=== PATIENT | female | born 1945 | race African-American/Black ===

== ENCOUNTER 2016-11-01 12:39 | Inpatient (IN) ==
[2016-11-01] MEDS ORDERED: ALBUTEROL/IPRATROPIUM 3 ML NEB RESP TX STA (13:06)
--- NOTE | 2016-11-01 13:22 | Emergency Department Note ---
Judi Bales Brittany, am scribing for, and in the presence of, Magy Scott DO 13: 11. ITyler Debra, DO, personally performed the services described in this documentation, ascribed by Silvia Lau in my presence, and it is both accurate and complete 321 . Arrival - Arrival Chief Complaint: Shortness of Breath Stated Complaint: SOB ED Nursing Triage Note: C/o shortness of breath, fever, and wheezing-onset two days ago. Mode of Arrival: Wheelchair Limitations: No Limitations Source: Patient, Family - History of Present Illness HPI Narrative: This is a 71 y/o who presents to the ED with c/o dyspnea which started 1 week ago, but has gotten progressively worse in the past 3 days. Her family states she has breast cancer which has metastasized to the lungs. Her family states her oncologist is Dr. Leone. Her family reports her last radiation Tx was 4 days ago. Pt denies any CP. Pt also complains of BLE edema. Pt has no other complaints/pain in the ED at this time. PT has a PMHx HTN, IDDM , and breast cancer with mets to the lungs. Pt has had a tumor removed to the head in Jul. Pt denies a family medical Hx. Pt denies a social Hx. Onset (ago): week(s) (Started 1 week ago) Consistency: constant Severity: moderate Date of Last Menstrual Period: menopause Allergies/Adverse Reactions: Allergies Allergy/AdvReac Type Severity Reaction Status Date / Time No Known Allergies Allergy Verified 11/01/16 12:46 Home Medications: Home Medications Medication Instructions Recorded Confirmed Type Benazepril [Lotensin] 40 mg PO DAILY 11/01/16 History Ferrous Sulfate 324 mg PO BID 11/01/16 History Simvastatin [Zocor] 20 mg PO BEDTIME 11/01/16 History amLODIPine [Norvasc] 10 mg PO DAILY 11/01/16 History cloNIDine HCl [Clonidine HCl] 0.2 mg PO TID 11/01/16 History levETIRAcetam [Levetiracetam] 750 mg PO BID 11/01/16 History metFORMIN [Glucophage] 1,000 mg PO BID W/MEALS 11/01/16 History Review of System - Review of System 12 point system: reviewed and no additional remarkable complaints except as stated - Review of System Cardiovascular: Present: dyspnea on exertion. Absent: chest pain Musculoskeletal: Present: other (BLE edema) Medical,Surgical,& Family Hx - Medical History Cardio: History of: Hypertension Endocrine: History of: Diabetes Mellitus (IDDM) Reproductive: History of: Breast Cancer - Surgical History Additional Surgical History: Tumor removed to the head in Jul 2016 - Social History Smoking Status: Never smoker Frequency of Alcohol Use: None Type of Drug Use: None Exam Vital Signs: Vital Signs Temperature 97.5 F L 11/01/16 12:43 Pulse Rate 95 H 11/01/16 13:34 Respiratory Rate 19 11/01/16 13:34 Blood Pressure 168/90 11/01/16 12:43 O2 Sat by Pulse Oximetry 99 11/01/16 13:34 - General General appearance: alert, in no apparent distress - Head Head exam: Present: other (Scar consient with prior tumor removed in Jul 2016) - Eye Eye exam: Present: normal appearance, PERRL, EOMI. Absent: nystagmus, miosis, mydriasis - ENT ENT exam: Present: normal exam, normal oropharynx, mucous membranes moist, TM's normal bilaterally, normal external ear exam - Neck Neck exam: Present: normal inspection, full ROM, trachea midline. Absent: tenderness, meningismus, lymphadenopathy, thyromegaly - Chest Chest inspection: Present: normal inspection, symmetric chest wall rise. Absent : tenderness, rash, abscess - Respiratory Respiratory exam: Present: accessory muscle use, wheezes (Diffuse wheezing) - Cardiovascular Cardiovascular exam: Present: regular rate, tachycardia, normal heart sounds. Absent: murmur, rubs, gallop, clicks, JVD - Abdominal Exam Abdominal exam: Present: soft, normal bowel sounds. Absent: distention, tenderness, guarding, rebound, rigidity - Rectal Exam Rectal exam: Present: deferred - Extremities Exam Extremities exam: Present: normal capillary refill, pedal edema (BLE Edema the right is greater than the left) - Back Exam Back exam: Present: normal inspection, full ROM. Absent: tenderness, muscle spasm, rashes - Neurological Exam Neurological exam: Present: alert, oriented X3, CN II-XII intact. Absent: motor sensory deficit - Psychiatric Psychiatric exam: Present: normal affect, normal mood. Absent: depressed, agitated, anxious, flat affect, manic - Skin Skin exam: Present: warm, dry, intact, normal color. Absent: rash, cyanosis, diaphoresis, erythema, pallor, mottled Course Course Narrative: spoke with Dr Thomas who will admit the pt. IR to be consulted for pleural effusion. Results - Labs CBC & BMP: 11/01/16 13:42 11/01/16 13:42 Disposition Clinical Impression: Pleural effusion Case discussed with: patient, patient's family Disposition: Still a Patient Condition: Stable Time of Disposition: 14:46
--- NOTE | 2016-11-01 13:27 | XRay Report ---
Portable chest Date: 11/01/2016 Clinical history: Shortness of breath Comparison: 08/06/2011 Technique: Portable AP sitting chest Findings: Progressive cardiomegaly with calcification in the aortic knob. Progressive diffuse parenchymal findings with multiple ill-defined nodular densities. Moderately large right and small left pleural effusions. Increased mediastinal and hilar density with degenerative changes. Hiatal hernia. Impression: Progressive cardiomegaly with interval development of multiple noncalcified pulmonary nodules and luh metastasis in patient with known carcinoma of the breast. Moderately large right and small left pleural effusions with additional atelectasis/infiltration/edema. Hiatal hernia. Lateral decubitus chest x-ray may be helpful to determine how much free fluid is present. PROCEDURE INTERPRETED AT [facility] DEPARTMENT OF RADIOLOGY Final Report Signed by: Dr. Sara Lu
[2016-11-01 13:51] LABS: Basophils % 0.5 % (0.0-0.8); Eosinophils # 0.2 10*3/uL (0.0-0.87); Eosinophils % 2.3 % (0.00-10.9); Hematocrit 35.7 VOL% (35.7-47.0); Hemoglobin 11.3 GM/DL (12.0-16.0); Immature Granulocytes % 0.5 %; Immature Granulocytes Absolute 0.04 #; Lymphocytes # 1.3 10*3/uL (1.4-4.0); Lymphocytes % 15.5 % (21.3-54.2); Mean Corpuscular HGB Conc 31.7 GM/DL (32-36); Mean Corpuscular Hemoglobin 25 PG (27-34); Mean Corpuscular Volume 78.3 FL (87-102); Mean Platelet Volume 9.6 FL (9.6-12.0); Monocytes # 0.8 10*3/uL (0.11-0.8); Monocytes % 8.7 % (1.7-12.7); Neutrophils # 6.3 10*3/uL (1.4-7.4); Neutrophils % 72.5 % (38.7-73.9); Platelet Count 310 T/CUMM (130-400); Red Blood Count 4.56 MC/CUMM (3.8-5.5); Red Cell Distribution Width 18.6 % (9.3-17.3); White Blood Count 8.7 T/CUMM (4-12)
[2016-11-01 14:28] LABS: Alanine Aminotransferase 9 U/L (13-56); Alkaline Phosphatase 63 U/L (45-117); Aspartate Amino Transferase 35 U/L (0-37); Blood Urea Nitrogen 18 MG/DL (7-18); Calcium 9.2 MG/DL (8.5-10.1); Glucose 113 MG/DL (74-106); Osmolality,Calculated 288.8 MOS/KG (273-304); Potassium 4.2 MMOL/L (3.5-5.1); Sodium 144 MMOL/L (136-145); Total Protein 7.4 G/DL (6.4-8.3); Troponin I Only < 0.015 NG/ML (0.00-0.045)
[2016-11-01] MEDS ORDERED: guaiFENesin 200 MG/10 ML UDCUP PO PRN (14:51)
[2016-11-01] MEDS ORDERED: MYLANTA/LIDO VISC 2:1 300 ML BOTTLE SWISH/SWAL PRN (14:51)
[2016-11-01] MEDS ORDERED: ACETAMINOPHEN 325 MG TABLET PO PRN (14:51)
[2016-11-01] MEDS ORDERED: BENZTROPINE 2 MG/2 ML AMP IV PRN (14:51)
[2016-11-01] MEDS ORDERED: chlorproMAZINE INJ 25 MG in SODIUM CHLORIDE 0.9% 100 ML IV PRN (14:51)
[2016-11-01] MEDS ORDERED: MYLANTA/LIDO VISC 2:1 300 ML BOTTLE SWISH/SPIT PRN (14:51)
[2016-11-01] MEDS ORDERED: TEMAZEPAM 7.5 MG CAPSULE PO PRN (14:51)
[2016-11-01] MEDS ORDERED: MAGNESIUM HYDROXIDE SUSP 30 ML UDCUP PO PRN (14:51)
[2016-11-01] MEDS ORDERED: diphenhydrAMINE CAP 25 MG CAPSULE PO PRN (14:51)
[2016-11-01] MEDS ORDERED: ALPRAZolam 0.25 MG TABLET PO PRN (14:51)
[2016-11-01] MEDS ORDERED: PROMETHAZINE INJ 25 MG in SODIUM CHLORIDE 0.9% 50 ML IV PRN (14:51)
[2016-11-01] MEDS ORDERED: ALUMINUM/MAGNES/SIMETH MAX STR 30 ML UDCUP PO PRN (14:51)
[2016-11-01] MEDS ORDERED: chlorproMAZINE INJ 50 MG in SODIUM CHLORIDE 0.9% 100 ML IV PRN (14:51)
[2016-11-01] MEDS ORDERED: ONDANSETRON 4 MG/2 ML VIAL IV PRN (14:51)
[2016-11-01] MEDS ORDERED: LOPERAMIDE 2 MG CAPSULE PO PRN ×2 (14:51)
[2016-11-01] MEDS ORDERED: LACTULOSE 20 GM/30 ML UDCUP PO PRN (14:51)
[2016-11-01] MEDS ORDERED: chlorproMAZINE 25 MG TABLET PO PRN (14:51)
[2016-11-01] MEDS ORDERED: traMADol 50 MG TABLET PO PRN (14:51)
[2016-11-01 15:31] LABS: Uric Acid 7.3 MG/DL (2.6-6.0)
--- NOTE | 2016-11-01 15:50 | XRay Report ---
XR chest post procedure Indication: Status post right-sided thoracentesis. Comparison: Chest x-ray 11/01/2016 Technique: AP chest in inspiration and expiration. Findings: Diffusely distributed metastatic disease is again demonstrated. Right-sided pleural effusion has somewhat reduced in size. No pneumothorax or other complication from recent thoracentesis is demonstrated. Impression: 1. Decreased size of right-sided pleural effusion. 2. Diffuse metastatic disease has changed little. 11/01/2016 3:46 PM PROCEDURE INTERPRETED AT [facility] DEPARTMENT OF RADIOLOGY Final Report Signed by: Dr. Jose Graves
--- NOTE | 2016-11-01 16:08 | Ultrasound Report ---
US thoracentesis Indication: Malignant right pleural effusion. Breast cancer. ULTRASOUND-GUIDED THORACENTESIS Description: A formal timeout was performed. Maximum sterile barrier technique was used. A right pleural effusion was identified with ultrasound. The right back was prepped and draped in sterile fashion. Under sonographic guidance, a 6 Wolof pigtail catheter was advanced into the effusion using trocar technique. A captured sonographic image documents needle position. The needle was removed. Through the catheter, we obtained a total of 1200 cc of serosanguineous, clear fluid. The catheter was removed. A bandage was placed at the puncture site. The patient tolerated the procedure well. Chest radiograph is pending. Impression: Ultrasound-guided thoracentesis. PROCEDURE INTERPRETED AT [facility] DEPARTMENT OF RADIOLOGY Final Report Signed by: Ascencion Sam M.D.
--- NOTE | 2016-11-01 16:48 | EKG Report ---
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 OLD Electronically Signed On 11-01-16 17:46:28 CDT by CLAY ROJAS [email or web address]
[2016-11-01] MEDS: SODIUM CHLORIDE 0.9% 1,000 ML IV SCH (18:48)
[2016-11-02] MEDS ORDERED: diphenhydrAMINE 50 MG/1 ML VIAL IV ONE (09:11)
[2016-11-02] MEDS ORDERED: FAMOTIDINE 20 MG/2 ML VIAL IV ONE (09:11)
[2016-11-02] MEDS ORDERED: PALONOSETRON 0.25 MG/5 ML VIAL IV ONE (09:11)
--- NOTE | 2016-11-02 09:22 | Oncology History&Physical ---
Assessment and Plan - Time spent with patient Time spent with patient: Greater than 30 minutes (1) Breast cancer Status: Acute Assessment and plan: I had a lengthy discussion with the patient and her daughter this morning. I explained to them that even though we have been holding off on doing chemotherapy during her brain radiation, where now to place for her pulmonary disease is a much bigger threat than her brain metastases. We will initiate palliative chemotherapy today with Taxol plus carboplatin. I plan to keep her in the hospital for the remainder of the weekend to keep a close watch on her. I will do an echo today to evaluate her cardiomegaly. I will also obtain a chest x-ray tomorrow to see if her right pleural effusion re-accumulates. Current Visit: Yes (2) Brain metastasis Status: Acute Current Visit: Yes (3) Lung cancer Status: Acute Current Visit: Yes (4) Pleural effusion Status: Acute Current Visit: Yes History of Present Illness History of present illness: Ms. Caicedo is a 71 year old female who was found to have a neglected right breast mass approximately 2 months ago. When she presented with this, she was also found to have a large occipital lobe brain met along with pulmonary metastases. She had resection of the brain met at [facility] and has most recently been receiving radiotherapy to the resection site. We have been unable to do chemotherapy during the radiation due to the likelihood of significant toxicity. Her tumor is triple negative so I was not even able to place her on anti-estrogen therapy. She presented to the ER yesterday complaining of severe shortness of breath. Chest x-ray revealed a large right pleural effusion and significantly worsened pulmonary metastases compared to just 4 weeks ago on PET scan. She underwent thoracentesis yesterday with 1.2 L of fluid removed. She is here this morning and states that she is breathing much better. Her x-ray also revealed cardiomegaly. Home Medications Medication Instructions Recorded Confirmed Type Amlodipine Besylate/Benazepril 1 capsule PO QAM 11/01/16 11/01/16 History [Amlodipine-Benazepril 10-40 mg] Ferrous Sulfate Tab [Feosol 325 mg PO BID 11/01/16 11/01/16 History Original Tab] Simvastatin [Zocor] 20 mg PO BEDTIME 11/01/16 11/01/16 History cloNIDine HCl [Clonidine HCl] 0.2 mg PO TID 11/01/16 11/01/16 History metFORMIN [Glucophage] 1,000 mg PO BID W/MEALS 11/01/16 11/01/16 History Allergies Allergy/AdvReac Type Severity Reaction Status Date / Time No Known Allergies Allergy Verified 11/01/16 12:46 Medical,Surgical,& Family Hx - Medical History Cardio: History of: Hypertension Endocrine: History of: Diabetes Mellitus (IDDM) Reproductive: History of: Breast Cancer - Social History Smoking Status: Never smoker Frequency of Alcohol Use: None Type of Drug Use: None 12 point system: reviewed and no additional remarkable complaints except as stated - Constitutional Constitutional: Present: fatigue. Absent: chills, fever(s) - Cardiovascular Cardiovascular ROS IM: Present: orthopnea. Absent: chest pain - Respiratory Respiratory: Present: cough, dyspnea. Absent: hemoptysis, wheezing - Gastrointestinal Gastrointestinal: Absent: abdominal pain, hematemesis, hematochezia, nausea, vomiting Exam - Constitutional Vitals: Period Temp Pulse Resp BP Sys/Navarro Pulse Ox Last 24 Hr 98.2 F-99.4 F 50-93 17-22 100-186/50-87 90-98 General appearance: normal weight, no acute distress - Head Head Exam: Present: normocephalic, atraumatic - Eye Eye Exam: Present: EOMI. Absent: scleral icterus Pupils: Present: PERRL - Neck Neck exam: Absent: lymphadenopathy, thyromegaly - Respiratory Respiratory exam: Present: CTAB, decreased breath sounds. Absent: wheezes - Cardiovascular Cardiovascular exam: Present: RRR. Absent: JVD, systolic murmur - GI/Abdominal GI/Abdominal exam: Present: soft. Absent: ascites, distended, mass - Neurological Exam Neurological exam: Present: alert, oriented X3 - Psychiatric Psychiatric exam: Present: normal affect, normal mood - Skin Skin exam: Present: warm, dry Results - Labs CBC & BMP: 11/01/16 13:42 11/01/16 13:42 Lab Results: I have reviewed the past 24 hour labs - Diagnostic Findings Procedure: Chest x-ray: report reviewed by me
[2016-11-02] MEDS ORDERED: PACLitaxel 225 MG in SODIUM CHLORIDE 0.9% 250 ML IV ONE (10:00)
[2016-11-02] MEDS ORDERED: CARBOplatin 350 MG in SODIUM CHLORIDE 0.9% 250 ML IV ONE (10:00)
[2016-11-02] MEDS ORDERED: DEXAMETHASONE INJ 10 MG in SODIUM CHLORIDE 0.9% 50 ML IV ONE (10:00)
--- NOTE | 2016-11-02 16:47 | ECHO Report ---
Cuong Caicedonora Exam Date: 11/02/2016 14:49 Referring Physician: Technologist: Lavern Costa RDCS Age: 71 Ht (in): 60 Wt (lb): 136 Gender: F Exam Location: [facility] Echo Indications: Breast CA, Brain metastasis, Lung CA, Pleural effusion, Cardiomegaly, Essential (primary) hypertension, IDDM BP: 134 / 74 HR: Rhythm: Sinus Technical Quality: Fair IMPRESSIONS Left ventricular ejection fraction is estimated at 55 %. The right ventricle is normal in size and function. The right atrium is mildly enlarged. Moderately increased left atrial size. Mildly thickened mitral valve. Trace mitral valve regurgitation. Aortic valve sclerosis. Trace aortic valve regurgitation. Moderate tricuspid valve regurgitation. PAP45 mmHG. Pulmonic valve not well visualized. Normal pericardium without effusion. Normal ascending aorta dimension. Grade I diastolic dysfunction. MEASUREMENTS (Male / Female) Normal Values 2D ECHO LV Diastolic Diameter PLAX 4.3 cm 4.2 - 5.9 / 3.9 - 5.3 cm LV Systolic Diameter PLAX 3.4 cm LV Fractional Shortening PLAX 19.5 % IVS Diastolic Thickness 1.1 cm 0.6 - 1.0 / 0.6 - 0.9 cm LVPW Diastolic Thickness 1.2 cm 0.6 - 1.0 / 0.6 - 0.9 cm RV Internal Dim ED PLAX 3.3 cm Aortic Root Diameter 3.0 cm LA Systolic Diameter LX 4.5 cm 3.0 - 4.0 / 2.7 - 3.8 cm DOPPLER TR Peak Velocity 299.0 cm/s TR Peak Gradient 35.8 mmHg FINDINGS Left Ventricle Normal left ventricular cavity size. Left ventricular ejection fraction is estimated at 55 %. Right Ventricle The right ventricle is normal in size and function. Right Atrium The right atrium is mildly enlarged. Left Atrium Moderately increased left atrial size. Mitral Valve Mildly thickened mitral valve. Trace mitral valve regurgitation. Aortic Valve Aortic valve sclerosis. Trace aortic valve regurgitation. Tricuspid Valve Morphologically normal tricuspid valve. Moderate tricuspid valve regurgitation. PAP45 mmHG. Pulmonic Valve Pulmonic valve not well visualized. Pericardium Normal pericardium without effusion. Aorta Normal ascending aorta dimension. Ajit Clay (Electronically Signed) Final Date: 02 Nov 2016 16:46
[2016-11-02] MEDS: metFORMIN 500 MG TABLET PO SCH (16:52)
[2016-11-03] MEDS: SODIUM CHLORIDE 0.9% 1,000 ML IV SCH ×2 (02:39→16:09)
[2016-11-03 05:42] LABS: Basophils % 0.1 % (0.0-0.8); Hematocrit 26.2 VOL% (35.7-47.0); Immature Granulocytes % 0.8 %; Immature Granulocytes Absolute 0.07 #; Lymphocytes # 0.7 10*3/uL (1.4-4.0); Lymphocytes % 8.7 % (21.3-54.2); Mean Corpuscular HGB Conc 30.9 GM/DL (32-36); Mean Corpuscular Hemoglobin 25 PG (27-34); Mean Corpuscular Volume 79.4 FL (87-102); Mean Platelet Volume 10.6 FL (9.6-12.0); Monocytes # 0.5 10*3/uL (0.11-0.8); Monocytes % 6.1 % (1.7-12.7); NRBC # 0.02 10*3/uL; Neutrophils # 7.2 10*3/uL (1.4-7.4); Neutrophils % 84.3 % (38.7-73.9); Red Cell Distribution Width 18.4 % (9.3-17.3); White Blood Count 8.5 T/CUMM (4-12)
[2016-11-03 06:06] LABS: Hemoglobin 8.1 GM/DL (12.0-16.0); Platelet Count 220 T/CUMM (130-400)
[2016-11-03 06:20] LABS: Alanine Aminotransferase < 6 U/L (13-56); Albumin 1.9 G/DL (3.4-5.0); Alkaline Phosphatase 47 U/L (45-117); Aspartate Amino Transferase 28 U/L (0-37); Blood Urea Nitrogen 20 MG/DL (7-18); Calcium 7.7 MG/DL (8.5-10.1); Glucose 142 MG/DL (74-106); Magnesium 1.8 MG/DL (1.8-2.4); Osmolality,Calculated 292.7 MOS/KG (273-304); Potassium 4.3 MMOL/L (3.5-5.1); Sodium 145 MMOL/L (136-145); Total Protein 5.3 G/DL (6.4-8.3)
--- NOTE | 2016-11-03 08:29 | XRay Report ---
XR chest 2V Indication: Right-sided pleural effusion. Comparison: Chest x-ray 11/01/2016. Technique: PA and lateral chest x-ray was performed. Findings: Diffusely distributed pulmonary metastatic disease and right-sided pleural effusion demonstrating little interval change. The chest is otherwise stable. Impression: 1. Little interval change in the chest, findings as detailed. 11/03/2016 8:26 AM PROCEDURE INTERPRETED AT [facility] DEPARTMENT OF RADIOLOGY Final Report Signed by: Dr. Jose Graves
[2016-11-03] MEDS: metFORMIN 500 MG TABLET PO SCH ×2 (08:48→16:11)
--- NOTE | 2016-11-03 11:17 | Oncology Progress Note ---
Oncology Subjective PN Interval history: Ms. Caicedo is a 71 year old female who was found to have a neglected right breast mass approximately 2 months ago. She has extensive pulmonary metastases and a large right lung mass with right pleural effusion. She has multiple smaller lung metastases. She also has a large brain metastasis for which she is getting radiation. Dr. Thomas began chemotherapy yesterday with Taxol and carboplatin. Reviewing her chest x-ray film done today, she has very extensive tumor involvement of both lungs with the right side being much greater than the left, especially in the base. Breath sounds are absent in most of the right lung. Blood work today includes a white cell count of 8500 with a hemoglobin of 8.1. I am ordering blood transfusion today. I am also ordering repeat lab work through the weekend. Exam - Constitutional Vitals: Period Temp Pulse Resp BP Sys/Navarro Pulse Ox Last 24 Hr 97.4 F-99 F 69-83 18-20 113-148/57-74 92-96 Results - Labs CBC & BMP: 11/03/16 04:59 11/03/16 04:59
[2016-11-04] MEDS: SODIUM CHLORIDE 0.9% 1,000 ML IV SCH (01:46)
[2016-11-04 05:14] LABS: Basophils % 0.3 % (0.0-0.8); Eosinophils # 0.2 10*3/uL (0.0-0.87); Eosinophils % 2.2 % (0.00-10.9); Hematocrit 29.5 VOL% (35.7-47.0); Immature Granulocytes % 0.4 %; Immature Granulocytes Absolute 0.03 #; Lymphocytes # 0.9 10*3/uL (1.4-4.0); Lymphocytes % 13.2 % (21.3-54.2); Mean Corpuscular HGB Conc 30.5 GM/DL (32-36); Mean Corpuscular Hemoglobin 25 PG (27-34); Mean Corpuscular Volume 80.2 FL (87-102); Mean Platelet Volume 11.3 FL (9.6-12.0); Monocytes # 0.3 10*3/uL (0.11-0.8); Monocytes % 3.9 % (1.7-12.7); Neutrophils # 5.5 10*3/uL (1.4-7.4); Platelet Count 228 T/CUMM (130-400); Red Blood Count 3.68 MC/CUMM (3.8-5.5); Red Cell Distribution Width 18.6 % (9.3-17.3); White Blood Count 6.9 T/CUMM (4-12)
[2016-11-04 05:52] LABS: Alanine Aminotransferase < 9 U/L (13-56); Albumin 2.1 G/DL (3.4-5.0); Alkaline Phosphatase 50 U/L (45-117); Aspartate Amino Transferase 36 U/L (0-37); Blood Urea Nitrogen 31 MG/DL (7-18); Calcium 7.6 MG/DL (8.5-10.1); Glucose 126 MG/DL (74-106); Osmolality,Calculated 296.7 MOS/KG (273-304); Sodium 145 MMOL/L (136-145); Total Protein 5.7 G/DL (6.4-8.3); Uric Acid 8.2 MG/DL (2.6-6.0)
[2016-11-04] MEDS: metFORMIN 500 MG TABLET PO SCH ×2 (09:00→17:14)
--- NOTE | 2016-11-04 10:51 | Oncology Progress Note ---
Oncology Subjective PN Interval history: Ms. Caicedo is a 71 year old female who was found to have a neglected right breast mass approximately 2 months ago. She has extensive pulmonary metastases and a large right lung mass with right pleural effusion. She has multiple smaller lung metastases. She also has a large brain metastasis for which she is getting radiation. Dr. Thomas began chemotherapy yesterday with Taxol and carboplatin. She complains of persistent dyspnea and I am not surprised. I do not think we can relieve her dyspnea considering the appearance of her chest x-ray with bilateral extensive metastatic disease, a large right lung mass and right pleural effusion. She has edema of her lower extremities but it is modestly better today. We have left her IV fluids off. Her hemoglobin is 9.0 today with a platelet count of 228,000 and a white cell count of 6900. Her creatinine is just above normal today at 1.1. We will repeat chest x-ray in the morning. Exam - Constitutional Vitals: Period Temp Pulse Resp BP Sys/Navarro Pulse Ox Last 24 Hr 97.3 F-98.2 F 66-83 16-20 86-116/53-70 94-97 Results - Labs CBC & BMP: 11/04/16 04:23 11/04/16 04:23
[2016-11-05 05:30] LABS: Basophils % 0.3 % (0.0-0.8); Eosinophils # 0.1 10*3/uL (0.0-0.87); Eosinophils % 1.1 % (0.00-10.9); Hematocrit 32.6 VOL% (35.7-47.0); Hemoglobin 9.7 GM/DL (12.0-16.0); Immature Granulocytes % 0.4 %; Immature Granulocytes Absolute 0.03 #; Lymphocytes # 1.1 10*3/uL (1.4-4.0); Lymphocytes % 13.2 % (21.3-54.2); Mean Corpuscular HGB Conc 29.8 GM/DL (32-36); Mean Corpuscular Hemoglobin 24 PG (27-34); Mean Corpuscular Volume 80.5 FL (87-102); Mean Platelet Volume 11.1 FL (9.6-12.0); Monocytes # 0.3 10*3/uL (0.11-0.8); Monocytes % 3.1 % (1.7-12.7); Neutrophils # 6.5 10*3/uL (1.4-7.4); Neutrophils % 81.9 % (38.7-73.9); Platelet Count 204 T/CUMM (130-400); Red Blood Count 4.05 MC/CUMM (3.8-5.5); Red Cell Distribution Width 18.6 % (9.3-17.3); White Blood Count 7.9 T/CUMM (4-12)
[2016-11-05 06:07] LABS: Albumin 2.3 G/DL (3.4-5.0); Bilirubin,Total 1.1 MG/DL (0.2-1.0); Calcium 8.4 MG/DL (8.5-10.1); Osmolality,Calculated 296.7 MOS/KG (273-304); Potassium 4.9 MMOL/L (3.5-5.1); Total Protein 6.3 G/DL (6.4-8.3)
[2016-11-05] MEDS ORDERED: ALBUTEROL/IPRATROPIUM 3 ML NEB RESP TX PRN (06:22)
--- NOTE | 2016-11-05 07:37 | Oncology Progress Note ---
Assessment and Plan (1) Brain metastasis Status: Acute Current Visit: Yes (2) Lung cancer Status: Acute Current Visit: Yes (3) Pleural effusion Status: Acute Current Visit: Yes (4) Breast cancer Status: Acute Current Visit: Yes Oncology Subjective PN Interval history: Ms. Caicedo is significantly more short of breath today. Her x-ray shows a large reaccumulation of her pleural effusion. We will ask IR to repeat thoracentesis and likelihood of a pigtail drain in place. I will consult pulmonary for their assistance in managing this effusion. We may need to consider CV Surgery if this effusion does not drain with a small bore catheter. She has known metastatic breast cancer with severe pulmonary metastatic disease. She received her first dose of chemotherapy last Saturday and tolerated it well. Her prognosis is very poor. Hopefully the chemotherapy will slow down the reaccumulation of her pleural effusion. Her echo showed a good cardiac ejection fraction. Exam - Constitutional Vitals: Period Temp Pulse Resp BP Sys/Navarro Pulse Ox Last 24 Hr 96.2 F-98.2 F 78-95 18-26 97-165/56-76 86-97 General appearance: normal weight, mild distress - Head Head Exam: Present: normocephalic, atraumatic - Eye Eye Exam: Present: EOMI Pupils: Present: PERRL - ENT ENT exam: Present: normal exam, normal oropharynx - Neck Neck exam: Absent: lymphadenopathy, thyromegaly - Respiratory Respiratory exam: Present: decreased breath sounds. Absent: wheezes - Cardiovascular Cardiovascular exam: Present: RRR, tachycardia. Absent: JVD - GI/Abdominal GI/Abdominal exam: Present: soft. Absent: ascites, distended, firm, mass - Neurological Exam Neurological exam: Present: alert, oriented X3 - Skin Skin exam: Present: warm, dry Results - Labs CBC & BMP: 11/05/16 04:30 11/05/16 04:30 Lab Results: I have reviewed the past 24 hour labs - Diagnostic Findings Procedure: Chest x-ray: image reviewed by me
--- NOTE | 2016-11-05 08:50 | XRay Report ---
XR chest 2V Date: 11/05/2016 4:00 AM History: Metastatic breast cancer with pleural effusion Comparison: 11/03/2016 Technique: PA and lateral chest Findings: The heart is minimally enlarged with calcification in the aortic knob. Progressive large right pleural effusion. Numerous pulmonary masses are noted with atelectasis at the left lung base. Larger hiatal hernia. Stable mediastinum and osseous structures. Impression: Progressive large right pleural effusion with only minimal pneumatization of the right upper lobe. Too numerous to count noncalcified pulmonary nodules consistent with metastatic disease. Additional atelectasis at the left lung base with larger hiatal hernia. PROCEDURE INTERPRETED AT [facility] DEPARTMENT OF RADIOLOGY Final Report Signed by: Dr. Sara Lu
--- NOTE | 2016-11-05 09:42 | XRay Report ---
History: Right pleural effusion postop thoracentesis. History of metastatic breast cancer Date: 11/05/2016 at 9:04 AM Study: Chest x-ray post procedure Comparison exam: PA and lateral chest x-ray 11/05/2016 at 7:27 AM There is no evidence of a pneumothorax following thoracentesis. The large right-sided pleural effusion has moderately decreased in size following thoracentesis. Numerous ill-defined pulmonary nodules are scattered bilaterally compatible with metastatic disease. There is stable cardiomegaly. The mediastinal contours are unchanged. The osseous structures are similar. Impression: No evidence of pneumothorax following thoracentesis. Decreased right pleural effusion, though a moderate amount of pleural effusion does persist. Pulmonary metastases as before PROCEDURE INTERPRETED AT [facility] DEPARTMENT OF RADIOLOGY Final Report Signed by: Dr. Tenisha Luque
--- NOTE | 2016-11-05 09:49 | Post Interventional Procedure ---
Pre-op diagnosis: Malignant pleural effusion. Breast cancer Post-op diagnosis: same Procedure: Ultrasound-guided thoracentesis Radiologist: Tenisha Luque Is Technician: Froylan Escobar Anesthesia: local Specimens: none sent Estimated blood loss: none Complications: none Condition: stable Description/Findings: A formal timeout was performed. A right pleural effusion was identified with ultrasound. The dorsal right chest was prepped and draped in sterile fashion. Under sonographic guidance, a 6 American pigtail catheter was advanced into the effusion using trocar technique. A captured sonographic image documents needle position. The needle was removed. Through the catheter, we obtained a total of 1200 cc of serosanguineous fluid. The catheter was removed. A bandage was placed at the puncture site. The patient tolerated the procedure well. Chest radiograph shows no evidence of pneumothorax. Impression: Ultrasound-guided thoracentesis. Assessment and Plan - Time spent with patient Time spent with patient: Less than 30 minutes
[2016-11-05] MEDS: metFORMIN 500 MG TABLET PO SCH ×2 (09:52→17:40)
--- NOTE | 2016-11-05 09:52 | Ultrasound Report ---
History: Malignant pleural effusion. Breast cancer Date: 11/05/2016 Study: Ultrasound-guided thoracentesis Comparison exam: November 01, 2016 ULTRASOUND-GUIDED THORACENTESIS Description: A formal timeout was performed. A right pleural effusion was identified with ultrasound. The dorsal right chest was prepped and draped in sterile fashion. Under sonographic guidance, a 6 [place]ar[place] pigtail catheter was advanced into the effusion using trocar technique. A captured sonographic image documents needle position. The needle was removed. Through the catheter, we obtained a total of 1200 cc of serosanguineous fluid. The catheter was removed. A bandage was placed at the puncture site. The patient tolerated the procedure well. Chest radiograph shows no evidence of pneumothorax. Impression: Ultrasound-guided thoracentesis. PROCEDURE INTERPRETED AT [facility] DEPARTMENT OF RADIOLOGY Final Report Signed by: Dr. Tenisha Luque
--- NOTE | 2016-11-05 11:10 | Pulmonology Consult Note ---
History of Present Illness Chief complaint: Chronic pleural effusion. Breast cancer. History of present illness: Ms. Caicedo is a 71 year old black female whom I been asked to see in pulmonary consultation for evaluation and possible treatment. This patient presented with shortness of breath dyspnea on exertion. She has known breast cancer. Her chest x-ray showed a white out of the right lung. She had a thoracentesis this morning. Both lungs show what looks like multiple metastases. Patient says she agrees a whole lot better. I would say 60% of the fluid remains in the right chest. Patient also complains of swelling of both lower extremities. She was seen here a few years back with deep venous thrombophlebitis and pulmonary emboli. The remainder of review of systems negative. Allergies none Medicines. See below Past history. High blood pressure. Diabetes mellitus. Breast cancer. High blood pressure. This patient was have found to have breast cancer about 2 months ago. This was then directed right breast mass. 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 She had a resection of brain met at [facility]. She had been receiving radiation therapy to the resection site and Dr. Sinclair of been unable to do chemotherapy during the radiation to the left likelihood of significant toxicity. The tumor is triple negative. He has not been able to put on an estrogen therapy for this reason. Patient was hospitalized here in 2011 under the care of Dr. Chino Jeffries. She had deep venous thrombophlebitis of pulmonary emboli. Social history patient was seen with her daughter. Patient does not use alcohol and she never smoked. White count is 7900 with 82 segs. H&H is 9.7/32.6 with decreased indices and elevated red blood cell distribution with. Electrolytes are normal. Creatinine is 1.1. BUN is 32. Liver function tests are normal. Protein and albumin are low at 6.3 and 2.3 respectively. Cardiac enzymes are negative. Uric acid is elevated 8.2. Echocardiogram. October 2016. Ejection fraction of 55%. Pulmonary artery pressure 45 mmHg. Some enlargement of the left atrium and right atrium. Physical exam. Vitals signs. See below Psychiatric. Oriented 3. Her daughter was present very helpful. Neurologic. Cranial nerves seem to be intact. Face. Symmetrical. Lips and tongue are normal Neck. Symmetrical. Chest. Decreased breath sounds on the right Heart. No gallop Abdomen. Nondistended Lower extremities. +3/4 bilateral pedal and pretibial edema that extends beyond the tibial plateaus bilaterally and rectal deferred The remainder the physical exam is noncontributory. Impression. 1. Metastatic breast cancer. 2. Large right pleural effusion producing respiratory distress. Probably malignant. 3. High blood pressure 4. Diabetes mellitus 5. See above Plan. 1. Agree with your orders 2. Dr. Sinclair and I have discussed the case and coordinated our care. This patient should have a chest tube. We will see if her lung expands or if it is entrapped with tumor. If it expands we might want to consider talc poudrage. Another consideration would be chronic drain with a stop valve in place. Home Medications Medication Instructions Recorded Confirmed Type Amlodipine Besylate/Benazepril 1 capsule PO QAM 11/01/16 11/01/16 History [Amlodipine-Benazepril 10-40 mg] Ferrous Sulfate Tab [Feosol 325 mg PO BID 11/01/16 11/01/16 History Original Tab] Simvastatin [Zocor] 20 mg PO BEDTIME 11/01/16 11/01/16 History cloNIDine HCl [Clonidine HCl] 0.2 mg PO TID 11/01/16 11/01/16 History metFORMIN [Glucophage] 1,000 mg PO BID W/MEALS 11/01/16 11/01/16 History Allergies Allergy/AdvReac Type Severity Reaction Status Date / Time No Known Allergies Allergy Verified 11/01/16 12:46 Exam (Pulmonay) H&P - Constitutional Vitals: Period Temp Pulse Resp BP Sys/Navarro Pulse Ox Last 24 Hr 96.2 F-98.2 F 78-98 18-26 97-189/56-86 86-97 Medical,Surgical,& Family Hx - Medical History Cardio: History of: Hypertension Endocrine: History of: Diabetes Mellitus (IDDM) Reproductive: History of: Breast Cancer - Social History Smoking Status: Never smoker Frequency of Alcohol Use: None Type of Drug Use: None Results - Labs CBC & BMP: 11/05/16 04:30 11/05/16 04:30
--- NOTE | 2016-11-05 15:03 | CT Report ---
CT chest wo con Indication: Right-sided pleural effusion. Comparison: None. Technique: CT chest was performed without administration of intravenous contrast. In addition to multiple contiguous axial source images, coronal and sagittal MPR series were provided. The CT examination was performed using one or more of the following dose reduction techniques: Automatic exposure control, adjustment of the mA and kV according to patient size, use of acute or iterative reconstruction techniques. Findings: There is a large mass within the right breast which is partially imaged and measures up to 11 cm in greatest dimension. Axillary adenopathy on the right additionally is partially imaged and measures up to 4.3 cm. Retropectoral lymph nodes additionally are enlarged measuring up to 3 cm on the right. Extensive pleural metastatic disease is suggested throughout the right chest. A loculated pleural effusion is demonstrated and despite lack of intravenous contrast, some areas of soft tissue attenuation is suggested along the pleura compatible with pleural metastatic disease. Atelectasis of the right lower lobe and right middle lobe is present. Additionally there is extensive bilateral pulmonary metastatic disease with too numerous to count metastatic deposits throughout the lung parenchyma. No pleural effusion is present on the left. The mediastinal contents demonstrate suggested adenopathy in the hilar regions, however hilar region is somewhat difficult to discern due to lack of intravenous contrast. Subcentimeter left axillary lymph nodes are present. Heart size is normal. A large hiatal hernia is present. The esophagus is not identified. Bony structure of the chest demonstrates no specific evidence of osseous metastatic disease. Note is made to a single phase nuclear medicine bone scan is a more sensitive modality for evaluation of the skeletal system for osseous metastatic disease. Visualized portion of the upper abdomen demonstrates no acute findings and no specific evidence of osseous metastatic disease. Soft tissues and muscular structures of the body wall demonstrate edema within the right chest wall soft tissues. Impression: 1. Large right breast mass with extensive large bulky lymph nodes within the right retropectoral region as well as right axilla are present. 2. Probable pleural metastatic disease within the right chest. Additionally a loculated pleural effusion is demonstrated. 3. Extensive bilateral pulmonary metastatic disease is present. 3. No specific evidence of osseous metastatic disease is demonstrated. Single phase nuclear medicine bone scan is a more sensitive modality for evaluation of the skeletal system for metastatic disease. 4. Large hiatal hernia. 11/05/2016 2:56 PM PROCEDURE INTERPRETED AT [facility] DEPARTMENT OF RADIOLOGY Final Report Signed by: Dr. Jose Graves
--- NOTE | 2016-11-05 15:55 | Ultrasound Report ---
Exam: Bilateral lower extremity venous Doppler ultrasound Comparison: 08/06/2011 Clinical history: History of DVT with bilateral lower extremity edema Technique: Duplex scan of the lower extremity veins using B-mode/grayscale scaled imaging and Doppler spectral analysis and color flow. Findings: Major venous structures of the left lower extremities demonstrate a normal course and caliber. Normal color-flow study and spectral analysis. There is normal compression and augmentation of left common femoral, superficial femoral and popliteal veins. The proximal bilateral greater saphenous veins appear to be patent. Occluding thrombus in the right common femoral and superficial femoral vein. Nonoccluding thrombus in the right popliteal vein. Abnormal compression and augmentation. Impression: Evidence of deep venous thrombosis within the right lower extremity. Occluding thrombus in the right common femoral and superficial femoral veins with nonoccluding thrombus in the right popliteal vein. These findings were discussed with the patient's nurse Jeanne at 3:45 PM on 11/05/2016. Critical test results Ultrasound images were captured and stored. PROCEDURE INTERPRETED AT [facility] DEPARTMENT OF RADIOLOGY Final Report Signed by: Dr. Sara Lu
[2016-11-05] MEDS ORDERED: ENOXAPARIN 30 MG/0.3 ML SYRINGE SUBCUT SCH (17:30)
--- NOTE | 2016-11-05 21:21 | Cardiothoracic Consult ---
Assessment and Plan - Time spent with patient Time spent with patient: Greater than 30 minutes (1) Pleural effusion Status: Acute Assessment and plan: 71-year-old female with metastatic breast cancer was noted to have a large right pleural effusion that is most likely to be malignant effusion. I was consulted for evaluation for possible talc pleurodesis. I will obtain a CT chest to evaluate for possible lytic lesions and will follow up with the patient and the family with the the possibilities of management. Current Visit: Yes History of Present Illness - Data of Consult Patient: new to practice Consult date: 11/05/16 Requesting Physician: Dimitri Arrington - Consult Narrative Reason for consult: Right pleural effusion History of present illness: Ms. Caicedo is a 71 year old female who by report has a known metastatic breast cancer to both lungs. Was noted to have a right large pleural effusion on a chest x-ray. The patient currently is a symptomatic. She is not requiring any oxygen. CC: Albert Thomas MD - Home Medications and Allergies Home Medications: Home Medications Medication Instructions Recorded Confirmed Type Amlodipine Besylate/Benazepril 1 capsule PO QAM 11/01/16 11/01/16 History [Amlodipine-Benazepril 10-40 mg] Ferrous Sulfate Tab [Feosol 325 mg PO BID 11/01/16 11/01/16 History Original Tab] Simvastatin [Zocor] 20 mg PO BEDTIME 11/01/16 11/01/16 History cloNIDine HCl [Clonidine HCl] 0.2 mg PO TID 11/01/16 11/01/16 History metFORMIN [Glucophage] 1,000 mg PO BID W/MEALS 11/01/16 11/01/16 History Allergies/Adverse Reactions: Allergies Allergy/AdvReac Type Severity Reaction Status Date / Time No Known Allergies Allergy Verified 11/01/16 12:46 12 point system: reviewed and no additional remarkable complaints except as stated (HPI) Medical,Surgical,& Family Hx - Medical History Cardio: History of: Hypertension Endocrine: History of: Diabetes Mellitus (IDDM) Reproductive: History of: Breast Cancer - Social History Smoking Status: Never smoker Frequency of Alcohol Use: None Type of Drug Use: None Physical Examination Vital Signs Temp Pulse Resp BP Pulse Ox 97.5 F L 100 H 24 168/90 83 L 11/01/16 12:43 11/01/16 12:43 11/01/16 12:43 11/01/16 12:43 11/01/16 12:43 General: Present: Appears Well HEENT: Present: PERRL Neck: Present: Supple Neck Cardiac: Present: Reg Rate and Rhythm Lungs: Present: Decreased Breath Sounds, Wheezes, Scattered Rhonchi Neuro: Present: Cranial Nerve 2-12 Intact Abdomen: Present: Soft, Active Bowel Sounds Result/EKG - Labs CBC & BMP: 11/05/16 04:30 11/05/16 04:30 Labs: Laboratory Results - last 24 hr 11/05/16 11/05/16 04:30 04:30 WBC 7.9 RBC 4.05 Hgb 9.7 L Hct 32.6 L MCV 80.5 L MCH 24 L MCHC 29.8 L RDW 18.6 H Plt Count 204 MPV 11.1 Neut % (Auto) 81.9 H Lymph % (Auto) 13.2 L Brantley % (Auto) 3.1 Eos % (Auto) 1.1 Baso % (Auto) 0.3 Neut # (Auto) 6.5 Lymph # (Auto) 1.1 L Brantley # (Auto) 0.3 Eos # (Auto) 0.1 Baso # (Auto) 0.0 Immature Gran % 0.4 Nucleated RBC % 0.0 Immature Gran # 0.03 Nucleated RBCs # 0.00 Sodium 145 Potassium 4.9 Chloride 113 H Carbon Dioxide 22 Anion Gap 14.9 BUN 32 H Creatinine 1.10 H GFR Calculation 54 BUN/Creatinine Ratio 29.00 H Glucose 135 H Calculated Osmolality 296.7 Calcium 8.4 L Total Bilirubin 1.10 H AST 40 H ALT 9 L Alkaline Phosphatase 55 Lactate Dehydrogenase 368 H Total Protein 6.3 L Albumin 2.3 L Globulin 4.0 H Albumin/Globulin Ratio 0.5 L
[2016-11-06 05:18] LABS: Basophils % 0.3 % (0.0-0.8); Eosinophils # 0.1 10*3/uL (0.0-0.87); Eosinophils % 1.6 % (0.00-10.9); Hematocrit 30.5 VOL% (35.7-47.0); Hemoglobin 9.3 GM/DL (12.0-16.0); Immature Granulocytes % 0.3 %; Immature Granulocytes Absolute 0.02 #; Lymphocytes # 0.7 10*3/uL (1.4-4.0); Mean Corpuscular HGB Conc 30.5 GM/DL (32-36); Mean Corpuscular Hemoglobin 24 PG (27-34); Mean Corpuscular Volume 79.4 FL (87-102); Mean Platelet Volume 11.6 FL (9.6-12.0); Monocytes # 0.2 10*3/uL (0.11-0.8); Monocytes % 2.3 % (1.7-12.7); Neutrophils # 5.5 10*3/uL (1.4-7.4); Neutrophils % 84.5 % (38.7-73.9); Platelet Count 169 T/CUMM (130-400); Red Blood Count 3.84 MC/CUMM (3.8-5.5); Red Cell Distribution Width 18.2 % (9.3-17.3); White Blood Count 6.5 T/CUMM (4-12)
[2016-11-06 05:54] LABS: Albumin 2.1 G/DL (3.4-5.0); Bilirubin,Total 0.7 MG/DL (0.2-1.0); Calcium 8.3 MG/DL (8.5-10.1); Osmolality,Calculated 296.6 MOS/KG (273-304); Total Protein 5.8 G/DL (6.4-8.3)
--- NOTE | 2016-11-06 08:14 | Oncology Progress Note ---
Assessment and Plan (1) Brain metastasis Status: Acute Current Visit: Yes (2) Lung cancer Status: Acute Current Visit: Yes (3) Pleural effusion Status: Acute Current Visit: Yes (4) Breast cancer Status: Acute Current Visit: Yes Oncology Subjective PN Interval history: Ms. Caicedo is breathing better after the fluid was drained off yesterday. CV Surgery saw her yesterday and is evaluating her with a CT of chest to see if chest tube placement with talc pleurodesis will be of benefit. Her CT showed her known diffuse pulmonary disease along with her right breast and lymph node involvement. Her effusion is loculated with associated pleural disease. She states her shortness of breath has began to increase today so I am concerned that her fluid is reaccumulating. I had a lengthy discussion with her this morning about her prognosis and how she needs to be deciding how aggressive she wants us to be if she worsens. She is neglected to have her breast cancer evaluated or treated for almost a year now and I explained to her that what we are doing is just palliative in nature. This is something we will never cure. I am unsure how well she understands this or is willing to accept it. At this point she is remains in the hospital due to her right chest pathology. I am unsure what our endpoint will be about finally getting her home at some point. We will see what CV Surgery says today from the standpoint and go from there. Her prognosis is exceedingly poor. Exam - Constitutional Vitals: Period Temp Pulse Resp BP Sys/Navarro Pulse Ox Last 24 Hr 97.7 F-98.5 F 75-98 18-24 104-189/51-86 91-97 General appearance: normal weight, no acute distress - Head Head Exam: Present: normocephalic, atraumatic - Eye Eye Exam: Present: EOMI Pupils: Present: PERRL - ENT ENT exam: Present: normal exam, normal oropharynx - Neck Neck exam: Absent: lymphadenopathy, thyromegaly - Respiratory Respiratory exam: Present: decreased breath sounds. Absent: wheezes - GI/Abdominal GI/Abdominal exam: Present: soft Results - Labs CBC & BMP: 11/06/16 04:25 11/06/16 04:25 Lab Results: I have reviewed the past 24 hour labs
[2016-11-06] MEDS: ENOXAPARIN 60 MG/0.6 ML SYRINGE SUBCUT SCH ×2 (09:07→20:52)
[2016-11-06] MEDS: metFORMIN 500 MG TABLET PO SCH ×2 (09:09→16:25)
--- NOTE | 2016-11-06 09:21 | XRay Report ---
XR chest 1V portable Indication: Pleural effusion, breast cancer with metastases Comparison: Chest x-ray dated November 05, 2016 at 9:03 AM Technique: Single frontal view of the chest Findings: Cardiac mediastinal silhouette appears grossly unchanged. Multiple nodular opacities again project throughout the bilateral lungs consistent with metastatic disease. Continued moderate right pleural fluid. Osseous and surrounding soft tissue structures appear grossly unchanged. IMPRESSION: No significant interval change. PROCEDURE INTERPRETED AT [facility] DEPARTMENT OF RADIOLOGY Final Report Signed by: Dr Beka Garg
--- NOTE | 2016-11-06 10:28 | Pulmonology Progress Note ---
Pulmonary - PN: Subj Interval history: Shalom Gary, ANP-BC, GNP-BC, acting as scribe for Dr. Dimitri Arrington Mrs. Caicedo is a 71-year-old -[place] female who we saw in initial pulmonary consultation on 11/05/2016. At that time, our impressions were: 1. Metastatic breast cancer. 2. Large right pleural effusion producing respiratory distress. Probably malignant. 3. High blood pressure 4. Diabetes mellitus 5. See past history 11/06/2016. Patient was seen today along with her daughter. Doppler venograms done 11/05/2016 showed an occluding thrombus in the right common femoral and right superficial femoral veins. There is nonoccluding thrombus in the right popliteal vein. She was started on Lovenox 30 mg subcu every 12 hours. Of note , the patient does have a history of DVT and PE. She has been seen in cardiothoracic surgery consultation by Dr. Montoya. CT of the chest on 2016 showed large right breast mass with extensive large bulky lymph nodes within the right retropectoral region as well as right axilla, probable pleural metastatic disease within the right chest with additional loculated pleural effusion, extensive bilateral pulmonary metastatic disease, but no evidence of osseous metastatic disease. Patient also had a large hiatal hernia. The patient's daughter states the Dr. Montoya has recommended a Pleurx catheter placement for periodic fluid removal. The patient and her daughter are going to discuss this with the patient's , but they appear to be in favor of placement. From a pulmonary standpoint, the patient is breathing better today. Notably, she is on 4-5 L of oxygen via nasal cannula. Medications have been reviewed. We made no changes today. Lovenox was started yesterday. Labs been reviewed. White count is 6500 with 84.5% segs; H&H 9.3/30.5 with decreased indices and increased red blood cell distribution with; platelet count 169,000; creatinine 1.00, BUN 27, sodium 146, potassium 5.0; calcium is low at 8.3 reflecting a low albumin of 2.1, total protein 5.8; LDH 356; liver function tests show an AST of 38, ALT 10, and alkaline phos 49 Exam (Progress Note) - Constitutional Vitals: Period Temp Pulse Resp BP Sys/Navarro Pulse Ox Last 24 Hr 97.7 F-98.7 F 75-81 18-20 104-137/51-68 94-97 Exam: Chest with decreased breath sounds on the right Heart no gallop Abdomen is nontender nondistended; bowel sounds are positive 4 Lower extremities with bilateral pedal and pretibial edema; note, Doppler venograms were positive for DVT on the right Psychiatric oriented 3 Neurologic unchanged Plan: Continue present treatment. Agree with Pleurx catheter placement. Continue Lovenox. Check iron studies, B12 level, and folate level. See orders. Results - Labs CBC & BMP: 11/06/16 04:25 11/06/16 04:25
--- NOTE | 2016-11-06 18:28 | Cardiothoracic Progress Note ---
Assessment and Plan (1) Pleural effusion Status: Acute Assessment and plan: 71-year-old female with metastatic breast cancer was noted to have a large right pleural effusion that is most likely to be malignant effusion. I had a discussion with Dr. Morse regarding the prognosis and he mentioned that the prognosis is very poor. The CT scan actually showed a large right pleural effusion. I discussed risks benefits and alternatives of Pleurx catheter with the patient and the family and they understand and they are willing and eager to proceed. I will likely perform the procedure on November 08.. Current Visit: Yes Exam (Progress Note) - Constitutional Vitals: Period Temp Pulse Resp BP Sys/Navarro Pulse Ox Last 24 Hr 98 F-98.7 F 78-84 18-20 114-143/60-68 93-97 Result/EKG - Labs CBC & BMP: 11/06/16 04:25 11/06/16 04:25 Labs: Laboratory Results - last 24 hr 11/06/16 11/06/16 04:25 04:25 WBC 6.5 RBC 3.84 Hgb 9.3 L Hct 30.5 L MCV 79.4 L MCH 24 L MCHC 30.5 L RDW 18.2 H Plt Count 169 MPV 11.6 Neut % (Auto) 84.5 H Lymph % (Auto) 11.0 L Sharkey % (Auto) 2.3 Eos % (Auto) 1.6 Baso % (Auto) 0.3 Neut # (Auto) 5.5 Lymph # (Auto) 0.7 L Sharkey # (Auto) 0.2 Eos # (Auto) 0.1 Baso # (Auto) 0.0 Immature Gran % 0.3 Nucleated RBC % 0.0 Immature Gran # 0.02 Nucleated RBCs # 0.00 Sodium 146 H Potassium 5.0 Chloride 113 H Carbon Dioxide 25 Anion Gap 13.0 BUN 27 H Creatinine 1.00 GFR Calculation 61 BUN/Creatinine Ratio 27.00 H Glucose 143 H Calculated Osmolality 296.6 Calcium 8.3 L Total Bilirubin 0.70 AST 38 H ALT 10 L Alkaline Phosphatase 49 Lactate Dehydrogenase 356 H Total Protein 5.8 L Albumin 2.1 L Globulin 3.7 H Albumin/Globulin Ratio 0.5 L
[2016-11-07] MEDS: MORPHINE 2 MG/1 ML SYRINGE IV PRN ×2 (04:56→17:55)
[2016-11-07 06:56] LABS: % Iron Saturation 40.8 % (18-50)
[2016-11-07 07:21] LABS: Folate 9.2 NG/ML (5.4-24.0)
--- NOTE | 2016-11-07 08:25 | Oncology Progress Note ---
Assessment and Plan (1) Brain metastasis Status: Acute Current Visit: Yes (2) Lung cancer Status: Acute Current Visit: Yes (3) Pleural effusion Status: Acute Current Visit: Yes (4) Breast cancer Status: Acute Current Visit: Yes Oncology Subjective PN Interval history: Ms. Caicedo states she feels well this morning. She continues to have decreased breath sounds on the right which is expected. We are planning for Pleurx catheter at some point this week. At this point it is planned for Saturday but I am hoping to move this up since this is the main reason why she is here we could possibly have her discharged by the latter part of this week if we can go ahead and have this placed. I will touch base with CV surgery to see if there is any way to move this up. If not I wonder if it is possible for IR to place this for us. For now we will continue with her current treatment. Exam - Constitutional Vitals: Period Temp Pulse Resp BP Sys/Navarro Pulse Ox Last 24 Hr 97.3 F-98.4 F 80-86 18-22 123-147/63-76 90-99 General appearance: normal weight, mild distress - Head Head Exam: Present: normocephalic, atraumatic - Eye Eye Exam: Present: EOMI Pupils: Present: PERRL - ENT ENT exam: Present: normal exam, normal oropharynx - Neck Neck exam: Absent: lymphadenopathy, thyromegaly - Respiratory Respiratory exam: Present: CTAB, decreased breath sounds Results - Labs CBC & BMP: 11/06/16 04:25 11/06/16 04:25
[2016-11-07] MEDS ORDERED: ENOXAPARIN 60 MG/0.6 ML SYRINGE SUBCUT SCH (09:00)
[2016-11-07] MEDS: ENOXAPARIN 60 MG/0.6 ML SYRINGE SUBCUT SCH (09:14)
[2016-11-07] MEDS: metFORMIN 500 MG TABLET PO SCH ×2 (09:15→17:37)
[2016-11-07] MEDS ORDERED: ENOXAPARIN 60 MG/0.6 ML SYRINGE SUBCUT ONE (17:23)
[2016-11-08] MEDS: metFORMIN 500 MG TABLET PO SCH ×2 (07:37→16:53)
[2016-11-08] MEDS ORDERED: LIDOCAINE 1%/EPI INJ 20 ML VIAL ONE (09:37)
[2016-11-08] MEDS ORDERED: DEXAMETHASONE 10 MG/1 ML VIAL ONE (10:07)
[2016-11-08] MEDS ORDERED: ONDANSETRON 4 MG/2 ML VIAL ONE (10:07)
[2016-11-08] MEDS ORDERED: KETAMINE 500 MG/10 ML VIAL ONE (10:54)
[2016-11-08] MEDS ORDERED: MIDAZOLAM 2 MG/2 ML VIAL ONE (10:54)
--- NOTE | 2016-11-08 12:16 | Oncology Progress Note ---
Assessment and Plan (1) Brain metastasis Status: Acute Current Visit: Yes (2) Lung cancer Status: Acute Current Visit: Yes (3) Pleural effusion Status: Acute Current Visit: Yes (4) Breast cancer Status: Acute Current Visit: Yes Oncology Subjective PN Interval history: Ms. Caicedo is a 71-year-old black female with metastatic triple negative breast cancer with brain and lung metastases. We had not begun chemotherapy initially due to receiving radiotherapy to her brain but approximately 1 week ago she presented with severe shortness of breath and was found to have very aggressive progression of disease within her lungs and a new large right pleural effusion. She has been in the hospital since this time. I gave her her first dose of Taxol plus carboplatin approximately 1 week ago. Her effusion is loculated and is required to separate thoracentesis. They are planning for Pleurx catheter today. I do not anticipate that she will be ready to go home over the next few days but if so I can always see her in clinic in 2 weeks for her next cycle of chemotherapy. I plan to cancel any further brain radiation at this point since her biggest threat is her lung disease and the only way to manage this is with systemic chemotherapy. She is DNR which is appropriate given her current condition and that this breast cancer was completely neglected for approximately 12 months. Her primary tumor is in her right breast which is very large and about the size of a softball. I will be out for the next 4 days and will hand off her case to my partner. She has a right lower extremity DVT and is currently on Lovenox. I have not begun Coumadin since she is requiring drainage of her right chest. She will need to be placed on Coumadin once we are getting close to the outpatient discharge. Exam - Constitutional Vitals: Period Temp Pulse Resp BP Sys/Navarro Pulse Ox Last 24 Hr 96.0 F-97.9 F 71-82 16-20 136-184/67-83 93-97 General appearance: normal weight, mild distress - Head Head Exam: Present: normal inspection, atraumatic - Eye Eye Exam: Present: EOMI Pupils: Present: PERRL - ENT ENT exam: Present: normal exam, normal oropharynx - Neck Neck exam: Present: tenderness. Absent: lymphadenopathy, thyromegaly - Respiratory Respiratory exam: Present: decreased breath sounds - Cardiovascular Cardiovascular exam: Present: RRR. Absent: irregular rhythm, JVD Results - Labs CBC & BMP: 05/23/17 04:25 11/06/16 04:25 Lab Results: I have reviewed the past 24 hour labs
--- NOTE | 2016-11-08 12:25 | Anesthesia Post-Op ---
Anesthesia Post OP - Post Ansesthetic Evaluation Patient seen in post op: Yes Resp: within normal limits CV: within normal limits Mental: within normal limits Temp: within normal limits Gatx-[id number]: within normal limits Nausea and Vomiting: within normal limits Pain: within normal limits
--- NOTE | 2016-11-08 14:08 | XRay Report ---
Referring Physician: Melva Montoya MD Exam: XR chest 1V Date: November 08, 2016 at 12:10 PM Reason: Right pleural catheter insertion Comparison: Chest one view portable November 06, 2016 Findings: A right pleural catheter is now in place with its distal tip at the peripheral aspect of the right upper lung zone. The cardiac silhouette is stable in size. There are patchy scattered opacities within both lungs, mainly within the right lower lung zone. This is consistent with bilateral pulmonary metastatic disease as seen on the recent CT. Atelectasis is also seen within both lower lung zones, mainly on the right, and pneumonia is not excluded on the right. Mild to moderate right pleural fluid is also present. No pneumothorax is identified. The osseous structures appear stable. Impression: 1. There has been placement of a right pleural catheter with its distal tip at the peripheral aspect of the right upper lung zone. No pneumothorax is identified. 2. There is again evidence of extensive bilateral pulmonary metastatic disease. 3. Persistent atelectasis and possible pneumonia within the right mid and lower lung zones and atelectasis within the left lower lung zone. 4. Mild to moderate right pleural fluid, likely loculated. PROCEDURE INTERPRETED AT [facility] DEPARTMENT OF RADIOLOGY Final Report Signed by: Dr. Richi Whipple
[2016-11-09] MEDS: metFORMIN 500 MG TABLET PO SCH ×2 (09:54→17:08)
--- NOTE | 2016-11-09 10:21 | Operative Note ---
Date of procedure: 11/08/16 Pre-op diagnosis: Right large malignant pleural effusion Post-op diagnosis: same Procedure: Insertion of right Pleurx catheter The patient was brought into the OR kept on her bed and sedation was administered by anesthesia. Antibiotics were given. Timeout was performed. The right chest was prepped and draped in the usual sterile fashion. Local lidocaine was injected over the eighth rib in the seventh intercostal space. Guidewire was inserted through the sheath. Free-flowing fluid was noted. After that I made minor incision 5 cm anteriorly. The passer was passed with the tube through forming a track. The dilator was then inserted over the wire. The tube fenestrated side was then inserted through the introducer sheath. Free-flowing fluid was noted again. The sheath was removed and the tube was secured. The minor incision was closed using Monocryl. The tube was connected to suction and 1200 cc was retrieved and there were old serosanguineous. The patient tolerated the procedure well without any problems. All counts were correct. Her oxygenation improved significantly to 100% after the procedure. She recovered well and moved to PACU in good condition. Surgeon / Physician: Melva Montoya Results - Labs CBC & BMP: 11/06/16 04:25 11/06/16 04:25 Discharge Plan - Discharge Medications No Action Simvastatin [Zocor] 20 mg PO BEDTIME cloNIDine HCl [Clonidine HCl] 0.2 mg PO TID Amlodipine Besylate/Benazepril [Amlodipine-Benazepril 10-40 mg] 1 capsule PO QAM metFORMIN [Glucophage] 1,000 mg PO BID W/MEALS Ferrous Sulfate Tab [Feosol Original Tab] 325 mg PO BID - Follow Up or Referral - Forms/Instructions
--- NOTE | 2016-11-09 11:39 | Oncology Progress Note ---
Oncology Subjective PN Interval history: Patient with metastatic triple negative breast cancer. Very ill-appearing on today's examination. 1200 cc serosanguineous fluid from right chest from yesterday's catheter procedure. Because of her known DVT and hypercoagulable state I plan to restart Lovenox later today at 60 mg twice daily. Her creatinine is normal. I am repeating her CBC now to monitor both platelets and hemoglobin levels. Her son and were present during my interview and examination. She has significant leg edema bilaterally. I did not examine her breasts but records indicate a very large right-sided neglected tumor. Positive brain metastasis are noted. DNR status is also noted with what I believe to be an extremely poor prognosis. Exam - Constitutional Vitals: Period Temp Pulse Resp BP Sys/Navarro Pulse Ox Last 24 Hr 96.5 F-98.5 F 67-85 16-20 124-158/60-90 94-100 Results - Labs CBC & BMP: 11/06/16 04:25 11/06/16 04:25
[2016-11-09 12:08] LABS: PT Patient Result 10.2 SECS
[2016-11-09 12:24] LABS: Basophils % 0.6 % (0.0-0.8); Eosinophils # 0.1 10*3/uL (0.0-0.87); Eosinophils % 1.6 % (0.00-10.9); Hematocrit 25.8 VOL% (35.7-47.0); Hemoglobin 8.3 GM/DL (12.0-16.0); Immature Granulocytes % 0.3 %; Immature Granulocytes Absolute 0.01 #; Lymphocytes # 0.9 10*3/uL (1.4-4.0); Lymphocytes % 29.5 % (21.3-54.2); Mean Corpuscular HGB Conc 32.2 GM/DL (32-36); Mean Corpuscular Hemoglobin 25 PG (27-34); Mean Corpuscular Volume 78.4 FL (87-102); Mean Platelet Volume 10.5 FL (9.6-12.0); Monocytes # 0.2 10*3/uL (0.11-0.8); Monocytes % 5.8 % (1.7-12.7); Neutrophils # 1.9 10*3/uL (1.4-7.4); Neutrophils % 62.2 % (38.7-73.9); Platelet Count 138 T/CUMM (130-400); Red Blood Count 3.29 MC/CUMM (3.8-5.5); Red Cell Distribution Width 17.2 % (9.3-17.3); White Blood Count 3.1 T/CUMM (4-12)
[2016-11-09 12:34] LABS: Albumin 2.1 G/DL (3.4-5.0); Bilirubin,Total 0.5 MG/DL (0.2-1.0); Calcium 8.5 MG/DL (8.5-10.1); Magnesium 2.3 MG/DL (1.8-2.4); Potassium 5.3 MMOL/L (3.5-5.1); Total Protein 5.4 G/DL (6.4-8.3)
[2016-11-09] MEDS: fentaNYL 25 MCG/HR PATCH TRANSDERM SCH (14:34)
[2016-11-09] MEDS: ENOXAPARIN 60 MG/0.6 ML SYRINGE SUBCUT SCH (14:34)
[2016-11-10] MEDS: ENOXAPARIN 60 MG/0.6 ML SYRINGE SUBCUT SCH ×2 (00:30→15:48)
[2016-11-10 05:05] LABS: Basophils % 0.4 % (0.0-0.8); Eosinophils # 0.1 10*3/uL (0.0-0.87); Eosinophils % 1.8 % (0.00-10.9); Hemoglobin 7.1 GM/DL (12.0-16.0); Immature Granulocytes % 0.4 %; Immature Granulocytes Absolute 0.01 #; Lymphocytes # 1.4 10*3/uL (1.4-4.0); Mean Corpuscular HGB Conc 30.9 GM/DL (32-36); Mean Corpuscular Hemoglobin 24 PG (27-34); Mean Corpuscular Volume 78.5 FL (87-102); Mean Platelet Volume 11.5 FL (9.6-12.0); Monocytes # 0.2 10*3/uL (0.11-0.8); Monocytes % 7.4 % (1.7-12.7); Neutrophils # 1.1 10*3/uL (1.4-7.4); Platelet Count 124 T/CUMM (130-400); Red Blood Count 2.93 MC/CUMM (3.8-5.5); Red Cell Distribution Width 17.3 % (9.3-17.3); White Blood Count 2.7 T/CUMM (4-12)
[2016-11-10 06:13] LABS: Hypochromasia 1+; Microcytosis 1+; Ovalocytes Slight
[2016-11-10 06:14] LABS: Platelet Estimate Adequate
[2016-11-10] MEDS: metFORMIN 500 MG TABLET PO SCH ×2 (08:45→16:47)
--- NOTE | 2016-11-10 12:49 | XRay Report ---
History: Pleural effusion with indwelling catheter Date: 11/10/2016 Study: Chest x-ray AP portable Comparison exam: November 08, 2016 The pleural drainage catheter in the right hemithorax is stable in position. There is no pneumothorax. There is some continued mild to moderate residual right pleural effusion, though this is perhaps slightly decreased. Ill-defined pulmonary nodules are scattered throughout both lungs in this patient with a history of metastatic breast cancer. There is no definite acute infiltrate. There are some stable atelectatic changes in the right lung base. The cardiomediastinal silhouette is unchanged. Osseous structures are similar. Impression: No interval worsening. Stable appearance of the pleural drainage catheter. Perhaps slight decrease in right pleural effusion. Pulmonary metastatic disease as before PROCEDURE INTERPRETED AT [facility] DEPARTMENT OF RADIOLOGY Final Report Signed by: Dr. Tenisha Luque
[2016-11-10] MEDS ORDERED: SODIUM CHLORIDE 0.9% 250 ML IV PRN (14:30)
--- NOTE | 2016-11-10 14:46 | Oncology Progress Note ---
Oncology Subjective PN Interval history: Metastatic breast cancer with right-sided pleural effusion. The patient appears more comfortable today. We will proceed with a third daily draining of her Pleurx catheter. If her output diminishes then we will consider every other day at that time. We are trying to move towards discharge home. She is neutropenic and anemic today and these will be addressed with the addition of Neupogen and 2 units red blood cells respectively. Her leg exam shows less edema with still right greater than left with prior thrombosis noted. Her daughter was at bedside Exam - Constitutional Vitals: Period Temp Pulse Resp BP Sys/Navarro Pulse Ox Last 24 Hr 97.6 F-98.8 F 67-87 18-21 103-161/54-71 90-100 Results - Labs CBC & BMP: 11/10/16 04:21 11/09/16 11:49
[2016-11-10] MEDS: FILGRASTIM-SNDZ 300 MCG/0.5 ML SYRINGE SUBCUT SCH (15:48)
[2016-11-11] MEDS: ENOXAPARIN 60 MG/0.6 ML SYRINGE SUBCUT SCH ×2 (04:23→16:22)
[2016-11-11 05:18] LABS: Basophils % 0.5 % (0.0-0.8); Eosinophils % 0.8 % (0.00-10.9); Hematocrit 30.9 VOL% (35.7-47.0); Immature Granulocytes % 1.1 %; Immature Granulocytes Absolute 0.04 #; Lymphocytes # 1.2 10*3/uL (1.4-4.0); Lymphocytes % 31.1 % (21.3-54.2); Mean Corpuscular HGB Conc 32.4 GM/DL (32-36); Mean Corpuscular Hemoglobin 27 PG (27-34); Mean Corpuscular Volume 81.7 FL (87-102); Mean Platelet Volume 10.5 FL (9.6-12.0); Monocytes # 0.6 10*3/uL (0.11-0.8); Monocytes % 14.9 % (1.7-12.7); Neutrophils # 1.9 10*3/uL (1.4-7.4); Neutrophils % 51.6 % (38.7-73.9); Platelet Count 105 T/CUMM (130-400)
[2016-11-11 05:37] LABS: Red Blood Count 3.78 MC/CUMM (3.8-5.5); White Blood Count 3.8 T/CUMM (4-12)
[2016-11-11 05:51] LABS: Calcium 8.5 MG/DL (8.5-10.1); Magnesium 1.8 MG/DL (1.8-2.4); Osmolality,Calculated 283.1 MOS/KG (273-304); Potassium 4.9 MMOL/L (3.5-5.1)
[2016-11-11] MEDS: metFORMIN 500 MG TABLET PO SCH ×2 (08:39→17:09)
[2016-11-11] MEDS: FILGRASTIM-SNDZ 300 MCG/0.5 ML SYRINGE SUBCUT SCH (08:39)
--- NOTE | 2016-11-11 11:56 | Oncology Progress Note ---
Oncology Subjective PN Interval history: Patient appears comfortable today resting in bed. Transfusion of red blood cells were noted yesterday. Her white blood cell count is improved. We will forego a thoracentesis today via indwelling catheter and try again tomorrow. She received 3 days in a row with yesterday's output of around 800 mL. She is comfortable at this time and I am hoping for discharge within the next 48 hours. Exam - Constitutional Vitals: Period Temp Pulse Resp BP Sys/Navarro Pulse Ox Last 24 Hr 97.3 F-99.4 F 60-87 18-20 91-161/51-71 90-100 Results - Labs CBC & BMP: 11/11/16 04:04 11/11/16 04:04
[2016-11-12] MEDS: ENOXAPARIN 60 MG/0.6 ML SYRINGE SUBCUT SCH ×2 (03:34→17:57)
[2016-11-12 06:34] LABS: Basophils % 0.2 % (0.0-0.8); Eosinophils % 0.7 % (0.00-10.9); Hematocrit 29.7 VOL% (35.7-47.0); Hemoglobin 9.7 GM/DL (12.0-16.0); Immature Granulocytes Absolute 0.72 #; Lymphocytes # 1.2 10*3/uL (1.4-4.0); Lymphocytes % 29.3 % (21.3-54.2); Mean Corpuscular HGB Conc 32.7 GM/DL (32-36); Mean Corpuscular Hemoglobin 27 PG (27-34); Mean Corpuscular Volume 81.8 FL (87-102); Mean Platelet Volume 11.8 FL (9.6-12.0); Monocytes % 23.2 % (1.7-12.7); NRBC # 0.02 10*3/uL; Neutrophils # 1.3 10*3/uL (1.4-7.4); Neutrophils % 29.6 % (38.7-73.9); Platelet Count 115 T/CUMM (130-400); Red Blood Count 3.63 MC/CUMM (3.8-5.5); Red Cell Distribution Width 17.3 % (9.3-17.3); White Blood Count 4.2 T/CUMM (4-12)
[2016-11-12 07:41] LABS: Band Neutrophils 7 % (0-10); Eosinophils 1 % (0-10); Lymphocytes 26 % (20-55); Segmented Neutrophils 43 % (50-85); Total Cells Counted 100
[2016-11-12 07:43] LABS: Hypochromasia 1+; Microcytosis 1+; Platelet Estimate Decreased
[2016-11-12] MEDS: metFORMIN 500 MG TABLET PO SCH ×2 (09:58→16:18)
[2016-11-12] MEDS: fentaNYL 25 MCG/HR PATCH TRANSDERM SCH (09:58)
[2016-11-12] MEDS: FILGRASTIM-SNDZ 300 MCG/0.5 ML SYRINGE SUBCUT SCH (10:00)
--- NOTE | 2016-11-12 15:48 | Oncology Progress Note ---
Oncology Subjective PN Interval history: Metastatic triple negative neglected breast cancer. The patient is comfortable today. She is in no pain. I have ordered and recommended pleural catheter drainage today as it has been 48 hours. Further drainage will be based on today 's quantitative outcome. Exam - Constitutional Vitals: Period Temp Pulse Resp BP Sys/Navarro Pulse Ox Last 24 Hr 97.2 F-99.2 F 66-88 18-20 102-140/55-76 95-99 Results - Labs CBC & BMP: 11/12/16 05:41 11/11/16 04:04
[2016-11-13] MEDS: ENOXAPARIN 60 MG/0.6 ML SYRINGE SUBCUT SCH (04:51)
--- NOTE | 2016-11-13 08:10 | Oncology Progress Note ---
Assessment and Plan (1) Brain metastasis Status: Acute Current Visit: Yes (2) Lung cancer Status: Acute Current Visit: Yes (3) Pleural effusion Status: Acute Current Visit: Yes (4) Breast cancer Status: Acute Current Visit: Yes Oncology Subjective PN Interval history: Ms. Caicedo seems to be doing much better than when I last saw her 5 days ago. She now has a Pleurx catheter in place and is being drained approximately every 2-3 days. I think at this point this area should be drained every 3 days as long as they are getting more than 500 cc out at each drainage. Hopefully this can be spaced out to just weekly as her chemotherapy takes effect. The fluid is now very bloody so we will discontinue anticoagulation. Her known right leg DVT is not causing significant issues. She is at a bigger risk for significant intrathoracic bleeding and intracranial bleeding with anticoagulation. We will hold Lovenox today and keep her in the hospital for 1 more day. Will arrange for home health to be set up at home and plan for discharge tomorrow. She is not due chemotherapy for another 10 days. We will continue with Neupogen for now and recheck her blood counts in the morning. She is most likely at her ronald at this point. Exam - Constitutional Vitals: Period Temp Pulse Resp BP Sys/Navarro Pulse Ox Last 24 Hr 97.2 F-98.7 F 62-77 16-20 90-122/50-65 94-98 General appearance: normal weight, no acute distress - Head Head Exam: Present: normocephalic, atraumatic - Eye Eye Exam: Present: EOMI Pupils: Present: PERRL - ENT ENT exam: Present: normal exam, normal oropharynx - Neck Neck exam: Absent: lymphadenopathy, thyromegaly - Respiratory Respiratory exam: Present: decreased breath sounds. Absent: wheezes - Cardiovascular Cardiovascular exam: Present: RRR. Absent: irregular rhythm, JVD, tachycardia - GI/Abdominal GI/Abdominal exam: Present: soft. Absent: ascites, distended, mass - Neurological Exam Neurological exam: Present: alert, oriented X3 - Psychiatric Psychiatric exam: Present: normal affect, normal mood - Skin Skin exam: Present: warm, dry Results - Labs CBC & BMP: 11/12/16 05:41 11/11/16 04:04 Lab Results: I have reviewed the past 24 hour labs
[2016-11-13] MEDS: metFORMIN 500 MG TABLET PO SCH ×2 (08:58→16:33)
[2016-11-13] MEDS: FILGRASTIM-SNDZ 300 MCG/0.5 ML SYRINGE SUBCUT SCH (09:00)
[2016-11-13] MEDS: METRONIDAZOLE 1% GEL 60 GM TUBE TOP SCH ×2 (10:40→21:19)
[2016-11-14 05:17] LABS: Basophils # 0.1 10*3/uL (0.0-0.2); Basophils % 0.2 % (0.0-0.8); Eosinophils % 0.1 % (0.00-10.9); Hematocrit 27.5 VOL% (35.7-47.0); Hemoglobin 8.7 GM/DL (12.0-16.0); Immature Granulocytes % 7.3 %; Lymphocytes # 2.4 10*3/uL (1.4-4.0); Lymphocytes % 11.6 % (21.3-54.2); Mean Corpuscular HGB Conc 31.6 GM/DL (32-36); Mean Corpuscular Hemoglobin 26 PG (27-34); Mean Corpuscular Volume 82.6 FL (87-102); Mean Platelet Volume 10.8 FL (9.6-12.0); Monocytes # 2.9 10*3/uL (0.11-0.8); Monocytes % 14.2 % (1.7-12.7); NRBC # 0.07 10*3/uL; Neutrophils # 13.7 10*3/uL (1.4-7.4); Neutrophils % 66.6 % (38.7-73.9); Platelet Count 154 T/CUMM (130-400); Red Blood Count 3.33 MC/CUMM (3.8-5.5); Red Cell Distribution Width 18.2 % (9.3-17.3); White Blood Count 20.6 T/CUMM (4-12)
[2016-11-14 05:43] LABS: Band Neutrophils 3 % (0-10); Eosinophils 1 % (0-10); Lymphocytes 8 % (20-55); Segmented Neutrophils 78 % (50-85); Total Cells Counted 100
[2016-11-14 05:44] LABS: Burr Cells Slight; Hypochromasia 1+; Microcytosis 1+; Ovalocytes Slight; Platelet Estimate Normal
[2016-11-14 05:54] LABS: Alanine Aminotransferase 15 U/L (13-56); Albumin 1.7 G/DL (3.4-5.0); Alkaline Phosphatase 59 U/L (45-117); Aspartate Amino Transferase 36 U/L (0-37); Bilirubin,Total < 0.39 MG/DL (0.2-1.0); Blood Urea Nitrogen 9 MG/DL (7-18); Calcium 7.7 MG/DL (8.5-10.1); Glucose 80 MG/DL (74-106); Magnesium 1.4 MG/DL (1.8-2.4); Potassium 4.4 MMOL/L (3.5-5.1); Sodium 143 MMOL/L (136-145); Total Protein 4.6 G/DL (6.4-8.3)
--- NOTE | 2016-11-14 07:44 | Discharge Summary ---
Hospital Course - Hospital Course Hospital Course: Ms. Caicedo is a 71-year-old black female with metastatic triple negative breast cancer with brain and lung metastases who was admitted with severe shortness of breath and was found to have a large right-sided pleural effusion. This effusion was drained multiple times and has now been managed with a Pleurx catheter. She has tolerated the Pleurx catheter well and home health has been arranged for drainage every 3 days. Hopefully this will not need to be a permanent arrangement as the chemotherapy will hopefully improve her lung disease and decrease her need for pleural drainage. We have discontinued her brain irradiation now that her lung metastases are her biggest threat and her best chance at a long-term survival is chemotherapy. She received her first dose of Taxol plus carboplatin 10 days ago. Her next dose is technically due on November 23 which is a Saturday. I will delay her follow-up until November 26 to see her in clinic and most likely give her her next dose of chemotherapy. She has a known right leg DVT but given that her pleural effusion is bloody we are holding off on any type of anticoagulation at this time. 1. Please make an appointment to see me on November 26 with CBC, CMP, and CA 27.29. - Time spent with patient Time with patient DS: Greater than 30 minutes Diagnosis - Discharge Diagnosis (1) Brain metastasis Status: Acute (2) Lung cancer Status: Acute (3) Pleural effusion Status: Acute (4) Breast cancer Status: Acute Discharge Plan - Discharge Data Disposition: Home Health Service Condition at Discharge: Stable Discharge Diet: advance to your usual diet Activity: resume usual activities as tolerated Hygiene: no restrictions Weight Bearing at Discharge: full weight bearing - Discharge Medications New fentaNYL 25 MCG/HR PATCH [Duragesic 25 Patch] 1 patch TRANSDERM Q3DAY #10 patch Metronidazole 1% Gel [Metrogel 1% Gel] 1 applic TOP DAILY #30 gm HYDROcodone/ACETAMIN 5-325 [[place] 5-325] 1 tablet PO Q4H PRN #60 tablet PRN Reason: Pain Moderate (4-7) Continue cloNIDine HCl [Clonidine HCl] 0.2 mg PO TID metFORMIN [Glucophage] 1,000 mg PO BID W/MEALS Discontinued Simvastatin [Zocor] 20 mg PO BEDTIME Amlodipine Besylate/Benazepril [Amlodipine-Benazepril 10-40 mg] 1 capsule PO QAM Ferrous Sulfate Tab [Feosol Original Tab] 325 mg PO BID - Follow Up or Referral - Forms/Instructions Exam - Constitutional Vitals: Period Temp Pulse Resp BP Sys/Navarro Pulse Ox Last 24 Hr 98.0 F-99.3 F 66-85 16-22 98-144/52-70 90-97 Discharge Results Labs on day of discharge: Labs from last 24 hours 11/14/16 11/14/16 04:52 04:52 WBC 20.6 H D RBC 3.33 L Hgb 8.7 L Hct 27.5 L MCV 82.6 L MCH 26 L MCHC 31.6 L RDW 18.2 H Plt Count 154 D MPV 10.8 Neut % (Auto) 66.6 Lymph % (Auto) 11.6 L [place] % (Auto) 14.2 H Eos % (Auto) 0.1 Baso % (Auto) 0.2 Neut # (Auto) 13.7 H Lymph # (Auto) 2.4 [place] # (Auto) 2.9 H Eos # (Auto) 0.0 Baso # (Auto) 0.1 Total Counted 100 Immature Gran % 7.3 Nucleated RBC % 0.3 Immature Gran # 1.50 Segmented Neutrophils 78 Band Neutrophils 3 Lymphocytes 8 L Monocytes 10 Eosinophils 1 Nucleated RBCs # 0.07 Platelet Estimate Normal Hypochromasia 1+ Microcytosis 1+ Ovalocytes Slight Pamela Cells Slight Morphology Comment Sodium 143 Potassium 4.4 Chloride 107 Carbon Dioxide 28 Anion Gap 12.4 BUN 9 Creatinine 0.80 GFR Calculation 80 BUN/Creatinine Ratio 11.00 Glucose 80 Calculated Osmolality 282.0 Calcium 7.7 L Magnesium 1.4 L Total Bilirubin < 0.39 AST 36 ALT 15 Alkaline Phosphatase 59 Total Protein 4.6 L Albumin 1.7 L Globulin 2.9 Albumin/Globulin Ratio 0.5 L DS: Provider Date of admission: 11/01/16 14:51 Primary care physician: . 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 Provider: Dimitri Arrnigton Consulting Provider Notified: Yes When should Consulting Provider be notified: Now Consult to Specialist Group: Pulmonology When should Consulting Provider be notified: Now Person Notified: KHADIJAH Date Notified: 11/05/16 Time Notified: 08:47 11/05/16 11:02 Consult to Physician [CONS] Routine Comment: Please evaluate for R chest tube placement Consulting Provider: Melva Montoya Consulting Provider Notified: Yes When should Consulting Provider be notified: Now Consult to Specialist Group: Cardiothoracic Surgery When should Consulting Provider be notified: Now Person Notified: Dr. Montoya Date Notified: 11/05/16 Time Notified: 12:46 11/08/16 16:55 Consult to Case Mgmt/Social Srvs [CONS] Routine Reason for Case Mgmt/Social Srvs: Discharge Planning Consult Comment: home health and home o2--has pleaurx catheter. Discharging clinician: Albert Thomas MD
[2016-11-14] MEDS: metFORMIN 500 MG TABLET PO SCH (09:20)
[2016-11-14] MEDS: FILGRASTIM-SNDZ 300 MCG/0.5 ML SYRINGE SUBCUT SCH (09:21)
[2016-11-14] MEDS: METRONIDAZOLE 1% GEL 60 GM TUBE TOP SCH (09:21)
[2016-11-14 13:33] VITALS: BP 110/58
--- NOTE | 2016-11-21 16:25 | Physician Query Form ---
CLICK EDIT DOCUMENT TO SELECT QUERY ANSWER --> OK --> SIGN Cammy Francis RN Clinical Rotary Cutter Feeder W) [phone] (f) [phone] [email or web address] PROVIDERS: Make your selection(s) from the choices in EACH section by typing an "x" and enter comments in the comment section. Please use your independent medical judgment in providing your response. This request does not imply that any particular answer is desired or expected. CLINICAL INDICATORS: (Providers should not edit this section) Based on US of lower dopplers reporting "Evidence of deep venous thrombosis within the right lower extremity. Occluding thrombus in the right common femoral and superficial femoral veins with nonoccluding thrombus in the right popliteal vein." Discharge summary states "She has a known right leg DVT" Clarify which of the following accurately represents the acuity of the above diagnosis. (x ) Acute ( ) Acute on chronic ( ) Chronic stable condition ( ) Remission ( ) Other, please specify: ( ) Clinically unable to determine COMMENTS: PLEASE ALSO DOCUMENT RESPONSE IN PROGRESS NOTES AND/OR DISCHARGE SUMMARY Use of terms such as suspected, likely, or probable (associated with a specific diagnosis that is being evaluated, monitored, or treated as if it exists) are acceptable and can be restated in the discharge summary if not ruled out. MTDD
== END 2016-11-14 13:45 | disposition home health service (06) | DRG 181 ==
LOC: N.ED 12:39 → N.EDINP 14:51 → N.4E 16:15
PROVIDERS: ADMIT Specialist; ATTEND Specialist
PROC: IRTHORA (2016-11-01 15:15)

== ENCOUNTER 2017-01-18 06:31 | Inpatient (IN) ==
[2017-01-18] MEDS ORDERED: levETIRAcetam 500 MG/5 ML VIAL IV ONE ×2 (06:49→06:51)
[2017-01-18] MEDS ORDERED: SUCCINYLCHOLINE 200 MG/10 ML VIAL ONE (07:08)
--- NOTE | 2017-01-18 07:21 | CT Report ---
Exam: CT scan of brain without contrast Date: 01/18/2017 Indication: Seizure Comparison: None Patient's classification: Emergency department Technical: Images were obtained from the skull base to the vertex without the use of intravenous contrast. Dose reduction was performed with decreasing kv and mA and automated exposure Total DLP: 914.6 mGy*cm Findings: Hyperostosis frontalis interna changes are present. There is calcification in the falx cerebri present. The ventricles are slightly enlarged. Small vessel changes are present in the periventricular subcortical white matter regions. The brainstem cerebellum are otherwise intact. Component of mild atrophy is present globally. The paranasal sinuses globes and sella are intact. Minimal calcification in the falx cerebri present. Impression: 1. Small vessel ischemic change and atrophy without acute hemorrhage infarction or mass effect. PROCEDURE INTERPRETED AT [facility] DEPARTMENT OF RADIOLOGY Final Report Signed by: Dr. Dimitri Kendrick
[2017-01-18] MEDS ORDERED: MIDAZOLAM 2 MG/2 ML VIAL ONE (07:22)
[2017-01-18] MEDS ORDERED: PROPOFOL 1,000 MG/100 ML BOTTLE IV ONE (07:25)
[2017-01-18 07:29] LABS: Eosinophils % 0.4 % (0.00-10.9); Hematocrit 25.9 VOL% (35.7-47.0); Hemoglobin 8.6 GM/DL (12.0-16.0); Immature Granulocytes % 0.4 %; Immature Granulocytes Absolute 0.01 #; Lymphocytes # 1.2 10*3/uL (1.4-4.0); Lymphocytes % 45.5 % (21.3-54.2); Mean Corpuscular HGB Conc 33.2 GM/DL (32-36); Mean Corpuscular Hemoglobin 28 PG (27-34); Mean Corpuscular Volume 85.5 FL (87-102); Monocytes # 0.1 10*3/uL (0.11-0.8); Monocytes % 4.3 % (1.7-12.7); Neutrophils # 1.3 10*3/uL (1.4-7.4); Neutrophils % 49.4 % (38.7-73.9); Platelet Count 128 T/CUMM (130-400); Red Blood Count 3.03 MC/CUMM (3.8-5.5); Red Cell Distribution Width 18.5 % (9.3-17.3); White Blood Count 2.6 T/CUMM (4-12)
[2017-01-18] MEDS: PROPOFOL 1,000 MG/100 ML BOTTLE IV SCH ×3 (07:32→21:18)
[2017-01-18 07:36] LABS: Albumin 2.3 G/DL (3.4-5.0); Bilirubin,Total 0.5 MG/DL (0.2-1.0); Calcium 8.1 MG/DL (8.5-10.1); Osmolality,Calculated 276.7 MOS/KG (273-304); Potassium 4.1 MMOL/L (3.5-5.1); Total Protein 6.8 G/DL (6.4-8.3)
[2017-01-18] MEDS ORDERED: MIDAZOLAM 2 MG/2 ML VIAL IV STA (07:41)
[2017-01-18 07:48] LABS: Giant Platelets Few; Hypochromasia 1+; Ovalocytes Slight; Platelet Estimate Normal
[2017-01-18 07:49] LABS: Microcytosis 1+
[2017-01-18] MEDS ORDERED: diphenhydrAMINE CAP 25 MG CAPSULE PO PRN (08:26)
[2017-01-18] MEDS ORDERED: LOPERAMIDE 2 MG CAPSULE PO PRN ×2 (08:26)
[2017-01-18] MEDS ORDERED: guaiFENesin 200 MG/10 ML UDCUP PO PRN (08:26)
[2017-01-18] MEDS ORDERED: ONDANSETRON 4 MG/2 ML VIAL IV PRN (08:26)
[2017-01-18] MEDS ORDERED: MYLANTA/LIDO VISC 2:1 300 ML BOTTLE SWISH/SWAL PRN (08:26)
[2017-01-18] MEDS ORDERED: MYLANTA/LIDO VISC 2:1 300 ML BOTTLE SWISH/SPIT PRN (08:26)
[2017-01-18] MEDS ORDERED: LACTULOSE 20 GM/30 ML UDCUP PO PRN (08:26)
[2017-01-18] MEDS ORDERED: BENZTROPINE 2 MG/2 ML AMP IV PRN (08:26)
[2017-01-18] MEDS ORDERED: ALUMINUM/MAGNES/SIMETH MAX STR 30 ML UDCUP PO PRN (08:26)
[2017-01-18] MEDS ORDERED: MAGNESIUM HYDROXIDE SUSP 30 ML UDCUP PO PRN (08:26)
--- NOTE | 2017-01-18 08:26 | Emergency Department Note ---
Hever Bales Manpreet, am scribing for, and in the presence of, Layo Paulson MD 06:56. Khurram Bales Doug C, MD, personally performed the services described in this documentation, ascribed by Moreno Kathleen in my presence, and it is both accurate and complete [id number] . Arrival - Arrival Chief Complaint: Seizure ED Nursing Triage Note: Patient to ED via EMS with c/o seizure activity lasting 20-30 seconds PETROLOGIST. EMS reports family went to check on patient and noted her to be seizing. Family is unavailable at time of triage but EMS reports PMH of brain and breast CA. Code Status is unknown at this time. En route, patient had multiple 20-30 sec seziures, and was given Versed 10mg, upon arrival to ED, EMS calls out stated patient has had a decreased LOC since being given medication and patient is having changes in her breathing pattern. Dr Paulson called to bedside, Code cart brought to bedside. Air way bag at bedside. Mode of Arrival: Stretcher Limitations: No Limitations Source: EMS Time Seen by Provider: 01/18/17 06:52 - History of Present Illness HPI Narrative: Patient 72-year-old black female who apparently had a grand mal seizure at home. This lasted anywhere from 20-30 minutes according to family when EMS picked her up she was talking but had further seizure activity and she was given 10 mg IM Valium. Patient developed respiratory arrest and they were bagging her when she arrived to the emergency room here. Patient opts is unable to give any history. The family requested a full CODE STATUS on her though she has stage IV breast cancer. She has history of brain metastasis and lung metastasis. She had been on seizure medications in the past. Chemotherapy has been halted. She is receiving radiotherapy. Patient was apneic here in the emergency department and discussion with family was entered and they requested full code with intubation and vent support. They are certainly aware of her terminal condition. Onset (ago): minute(s) Allergies/Adverse Reactions: Allergies Allergy/AdvReac Type Severity Reaction Status Date / Time No Known Allergies Allergy Verified 01/18/17 06:45 Home Medications: Home Medications Medication Instructions Recorded Confirmed Type cloNIDine HCl [Clonidine HCl] 0.2 mg PO TID 11/01/16 12/24/16 History metFORMIN [Glucophage] 1,000 mg PO BID W/MEALS 11/01/16 12/24/16 History Review of System - Review of System ROS unobtainable: due to mental status - Review of System Respiratory: Present: respiratory distress. Absent: cough Cardiovascular: Absent: chest pain Neurological: Present: other (Seizure) Medical,Surgical,& Family Hx - Medical History Cardio: History of: Hypertension Neurology: History of: Seizures (BRAIN METS) HEENT: History of: Dental Problems (PARTIAL) Endocrine: History of: Diabetes Mellitus (IDDM), Diabetes Mellitus (NIDDM) Respiratory: History of: Lung Cancer (02 AT HOME PRN.), Respiratory Problems ( TUMOR IN RT LUNG. DRAINAGE TUBE IN RT LUNG. DR CHEEMA. FLU VAC-NO; PNEU- N) Hematology: History of: Clotting Problems (RT LEG DVT 10/2016) Reproductive: History of: Breast Cancer (RT BREAST CA) Other: History of: Cancer (RT BREAST CA AND LUNG RT LUNG BRAIN CA), Miscellaneous Medical Problems (BLOOD TRANSFUSION 10/2016.) - Surgical History Neurologic Surgeries: Surgical HX of: Neurologic Surgery (BRAIN TUMOR REMOVED 2016.) HEENT Surgeries: Surgical HX of: Eye Surgery (ROHAN CATARACT SX) Orthopedic Surgeries: Surgical HX of;: Implanted Devices (RT LUNG DRAINAGE TUBE) - Family History Family History: Reports;: Family Cancer (MOTHER BREAST CA DAUGHTERE BREAST CA) - Social History Smoking Status: Unknown if ever smoked Frequency of Alcohol Use: Unknown Type of Drug Use: Unknown Exam Vital Signs: Vital Signs Temperature 97.2 F L 01/18/17 06:31 Pulse Rate 98 H 01/18/17 06:31 Respiratory Rate 14 01/18/17 06:31 Blood Pressure 146/88 01/18/17 06:31 O2 Sat by Pulse Oximetry 100 01/18/17 06:31 - General Exam limited due to: ALOC (Patient does not respond to painful stimuli. Patient 's respirations are in adequate to sustain her. This was discussed with family and they requested intubation and vent support.) - Head Head exam: Present: atraumatic, normocephalic, normal inspection - Eye Eye exam: Present: EOMI. Absent: PERRL (3 mm ) - ENT ENT exam: Present: normal exam, normal oropharynx, mucous membranes moist - Neck Neck exam: Present: normal inspection, full ROM, trachea midline. Absent: tenderness - Chest Chest inspection: Present: symmetric chest wall rise. Absent: normal inspection (Patient has a hard, softball size mass in her right breast.), tenderness - Respiratory Respiratory exam: Present: normal lung sounds bilaterally, respiratory distress. Absent: rhonchi, stridor, wheezes - Cardiovascular Cardiovascular exam: Present: regular rate, normal rhythm, normal heart sounds - Abdominal Exam Abdominal exam: Present: soft, normal bowel sounds. Absent: distention - Extremities Exam Extremities exam: Present: normal inspection, full ROM. Absent: tenderness - Back Exam Back exam: Present: normal inspection, full ROM. Absent: tenderness - Neurological Exam Neurological exam: Present: other (Patient flexes left upper extremity to painful stimuli otherwise no response.). Absent: alert, oriented X3 - Skin Skin exam: Present: warm, dry, intact, normal color. Absent: pallor Course Course Narrative: Patient's clinical presentation, laboratory and radiograph findings were discussed with Dr. Cheema. Patient will be admitted to his services. Results - Labs CBC & BMP: 01/18/17 06:53 01/18/17 06:42 Lab Results: I have reviewed the patients labs Labs: Laboratory Tests 01/18/17 01/18/17 06:42 06:53 WBC 2.6 L RBC 3.03 L Hgb 8.6 L Hct 25.9 L MCV 85.5 L MCHC 33.2 RDW 18.5 H Plt Count 128 L Neut # (Auto) 1.3 L Lymph # (Auto) 1.2 L Beauregard # (Auto) 0.1 L Sodium 138 Potassium 4.1 Chloride 103 Carbon Dioxide 29 BUN 12 Creatinine 0.60 Glucose 134 H Calculated Osmolality 276.7 Calcium 8.1 L AST 80 H Albumin 2.3 L Globulin 4.5 H Albumin/Globulin Ratio 0.5 L Laboratory Tests 01/18/17 06:53 Platelet Estimate Normal Giant Platelets Few Immature Plt Fraction 0.0 Hypochromasia 1+ Microcytosis 1+ Ovalocytes Slight - Diagnostic Findings Procedure: Chest x-ray: report reviewed by me (Patient has diffuse interstitial changes and appears to be right upper lobe soft tissue mass. Her pleural effusion has lessened in size.), CT: report reviewed by me (CT Head w/o con: 1. Small vessel ischemic change and atrohpy without acute hemorrhage infarction or mass effect.) Critical Care Time Critical Care Time: Yes Total Critical Care Time: 45 Attestation: Patient required attestation at the family's urging. This was accomplished with the assistance of succinylcholine. Family is aware of her terminal condition but want her on ventilator support. I discussed her care with her oncologist when she will be admitted to intensive care. Orders provided by myself. 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
[2017-01-18 08:27] LABS: Apearance,Urine CLEAR (Clear); Bilirubin,Urine Negative (Negative); Blood, Urine Negative (Negative); Glucose,Urine (UA) Negative (Negative); Ketones,Urine 5 mg/dL (Negative); Mucus,Urine Occasional /LPF (Occasional); Nitrite,Urine Negative (Negative); Protein,Urine Negative; RBC,Urine <1 /HPF (0-4); Urine Color Yellow (Yellow); Urine Specific Gravity 1.009 (1.001-1.035); Urine Urobilinogen < 2.0 EU/DL (0.2-1.0); WBC,Urine <1 /HPF (0-6)
--- NOTE | 2017-01-18 08:33 | XRay Report ---
XR chest 1V portable Indication: Intubation Comparison: 10 Nov 2016 Findings: The heart and mediastinum are similar in size and configuration. Endotracheal tube is been added with tip between chronic clavicles. A left subclavian Port-A-Cath is present appears in good position. Slightly increased. There are multiple lung nodules present throughout both lungs similar to previous exam. A catheter in the right pleural space appear similar to previous exam. Effusion on previous exam is improved. Impression: Support structures as described above. Multiple pulmonary nodules, similar to previous study. PROCEDURE INTERPRETED AT [facility] DEPARTMENT OF RADIOLOGY Final Report Signed by: Dr. Tobias Harris
--- NOTE | 2017-01-18 09:28 | Oncology History&Physical ---
Assessment and Plan (1) Breast cancer Status: Acute Assessment and plan: We will place her on IV Keppra for seizure control. I will readdress her CODE STATUS with the family. Will have pulmonary help us wean her from the ventilator. Her prognosis is very poor and I do not see any real benefit to her with advanced measures. Current Visit: No (2) Grand mal seizure disorder Status: Acute Current Visit: Yes (3) Brain metastasis Status: Acute Current Visit: No (4) Lung cancer Status: Acute Current Visit: No (5) Pleural effusion Status: Acute Current Visit: No History of Present Illness History of present illness: Ms. Caicedo is a 72 year old female with metastatic triple negative breast cancer who has been on palliative treatments now for a few months. She had a neglected right breast mass she states for many months and then was found to have a large brain metastases. This was treated with surgery at [facility] in [place] I think in the early part of 2017. She was then referred here for further breast care. We attempted to do radiotherapy to her brain but she was unable to complete the entire course of therapy due to rapidly progressive pulmonary metastases with a large right pleural effusion. We began palliative chemotherapy approximately 3 months ago. She also required drainage of the right pleural effusion and has a right Pleurx catheter in place. Based on recent imaging and laboratory findings in clinic I feel like she is progressing but we did not change up her chemotherapy regimen since she had only been on a short course of chemotherapy and the CT scan was not definitive. Her tumor marker has increased over the last 2 checks. She presented to the emergency room today with seizures. She required antiepileptic therapy and also intubation due to agonal breathing. Given her very poor prognosis and lack of good response to treatment, ideally she would have been DNR but it sounds like the family wanted her intubated. She is being admitted to the ICU now for vent management and antiseizure medicines. Hopefully we can have her off the ventilator very soon now that she is not seizing. I will readdress her CODE STATUS with the family the next time I talk with him. Home Medications Medication Instructions Recorded Confirmed Type cloNIDine HCl [Clonidine HCl] 0.2 mg PO TID 11/01/16 01/18/17 History Multivitamin (Centrum) [Centrum 1 tablet PO DAILY 01/18/17 01/18/17 History Tab] Allergies Allergy/AdvReac Type Severity Reaction Status Date / Time No Known Allergies Allergy Verified 01/18/17 06:45 Medical,Surgical,& Family Hx - Medical History Cardio: History of: Hypertension Neurology: History of: Seizures (BRAIN METS) HEENT: History of: Dental Problems (PARTIAL) Endocrine: History of: Diabetes Mellitus (IDDM), Diabetes Mellitus (NIDDM) Respiratory: History of: Lung Cancer (02 AT HOME PRN.), Respiratory Problems ( TUMOR IN RT LUNG. DRAINAGE TUBE IN RT LUNG. DR CHEEMA. FLU VAC-NO; PNEU- N) Hematology: History of: Clotting Problems (RT LEG DVT 10/2016) Reproductive: History of: Breast Cancer (RT BREAST CA) Other: History of: Cancer (RT BREAST CA AND LUNG RT LUNG BRAIN CA), Miscellaneous Medical Problems (BLOOD TRANSFUSION 10/2016.) - Surgical History Neurologic Surgeries: Surgical HX of: Neurologic Surgery (BRAIN TUMOR REMOVED 2016.) HEENT Surgeries: Surgical HX of: Eye Surgery (ROHAN CATARACT SX) Orthopedic Surgeries: Surgical HX of;: Implanted Devices (RT LUNG DRAINAGE TUBE) - Family History Family History: Reports;: Family Cancer (MOTHER BREAST CA DAUGHTERE BREAST CA) - Social History Smoking Status: Unknown if ever smoked Frequency of Alcohol Use: Unknown Type of Drug Use: Unknown ROS unobtainable: due to mental status Exam - Constitutional Vitals: Period Temp Pulse Resp BP Sys/Navarro Pulse Ox Last 24 Hr 97.2 F-97.2 F 84-98 12-19 146-194/88-107 100-100 General appearance: normal weight, mild distress - Head Head Exam: Present: normocephalic, atraumatic - Eye Eye Exam: Absent: scleral icterus - Neck Neck exam: Absent: lymphadenopathy, thyromegaly - Respiratory Respiratory exam: Present: CTAB. Absent: wheezes - Cardiovascular Cardiovascular exam: Present: RRR. Absent: JVD, systolic murmur - GI/Abdominal GI/Abdominal exam: Present: soft. Absent: ascites, distended, firm, mass - Neurological Exam Neurological exam: Absent: alert, oriented X3 - Skin Skin exam: Present: warm, dry Results - Labs CBC & BMP: 01/18/17 06:53 01/18/17 06:42 Lab Results: I have reviewed the past 24 hour labs - Diagnostic Findings Procedure: CT: report reviewed by me
[2017-01-18 09:59] LABS: ABG Base Excess 2.5 MMOL/L (-2.5-2.5); ABG HCO3 26.7 MMOL/L (20-26); ABG Oxygen Saturation 99.8 % (95-100); ABG PCO2 34.1 MM HG (35-48); ABG PH 7.486 (7.35-7.45); ABG TCO2 23.8 MMOL/L (23-27)
[2017-01-18] MEDS: SODIUM CHLORIDE 0.45% 1,000 ML IV SCH ×2 (10:00→23:37)
--- NOTE | 2017-01-18 11:29 | Pulmonology Consult Note ---
Assessment and Plan (1) On mechanically assisted ventilation Status: Acute Assessment and plan: The patient is on the ventilator and is stable. Will lower the FiO2 and hopefully can wean soon. Current Visit: Yes (2) Brain metastasis Status: Acute Assessment and plan: Patient has had radiation therapy to brain metastasis. Current Visit: No (3) Grand mal seizure disorder Status: Acute Assessment and plan: The patient has been started on seizure medicines. Current Visit: Yes (4) Breast cancer Status: Acute Assessment and plan: Patient has metastatic breast cancer and is getting chemotherapy. Her outlook is poor. Current Visit: Yes History of Present Illness Chief complaint: Ventilator management History of present illness: Ms. 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 The patient has been getting chemotherapy and had radiation therapy to her brain. She apparently has had a malignant effusion and has a Pleurx catheter on the right. She does have fairly extensive pulmonary metastasis. She apparently came in with seizures and had to be intubated. She is now on the ventilator in the ICU. She will get seizure medicines. At present she is stable on the ventilator. Home Medications Medication Instructions Recorded Confirmed Type cloNIDine HCl [Clonidine HCl] 0.2 mg PO TID 11/01/16 01/18/17 History Multivitamin (Centrum) [Centrum 1 tablet PO DAILY 01/18/17 01/18/17 History Tab] Allergies Allergy/AdvReac Type Severity Reaction Status Date / Time No Known Allergies Allergy Verified 01/18/17 06:45 ROS unobtainable: due to endotracheal tube (She is unable to give any past history) Exam (Pulmonay) H&P - Constitutional Vitals: Period Temp Pulse Resp BP Sys/Navarro Pulse Ox Last 24 Hr 97.2 F-97.2 F 78-98 12-19 146-194/88-107 100-100 General appearance: no acute distress (The patient is comfortable on the ventilator), under weight - Head Head exam: Present: normal inspection, other (She has alopecia) - Eye Eye exam: Present: EOMI. Absent: scleral icterus Pupils: Present: JENNIFER - ENT ENT exam: Present: other (ET tube is in good position) - Neck Neck exam: Absent: lymphadenopathy, thyromegaly - Respiratory Respiratory exam: Present: clear to auscultation bilaterally, other (She has good breath sounds bilaterally. She does have a very hard right breast with cancer.) - Cardiovascular Cardiovascular exam: Present: regular rate and rhythm, tachycardia. Absent: gallop, systolic murmur - GI/Abdominal GI/Abdominal exam: Present: normal bowel sounds, soft. Absent: ascites, organomegaly, tenderness - Extremities Exam Extremities exam: Absent: calf tenderness, edema - Neurological Exam Neurological exam: Present: other (She does respond at present and no further seizures.) - Psychiatric Psychiatric exam: Absent: anxious - Skin Skin exam: Present: warm, dry Medical,Surgical,& Family Hx - Medical History Cardio: History of: Hypertension Neurology: History of: Seizures (BRAIN METS) HEENT: History of: Dental Problems (PARTIAL) Endocrine: History of: Diabetes Mellitus (IDDM), Diabetes Mellitus (NIDDM) Respiratory: History of: Lung Cancer (02 AT HOME PRN.), Respiratory Problems ( TUMOR IN RT LUNG. DRAINAGE TUBE IN RT LUNG. DR CHEEMA. FLU VAC-NO; PNEU- N) Gastrointestinal: History of: GI Problems (CONSTIPATION) Hematology: History of: Clotting Problems (RT LEG DVT 10/2016) Reproductive: History of: Breast Cancer (RT BREAST CA) Other: History of: Cancer (RT BREAST CA AND LUNG RT LUNG BRAIN CA), Miscellaneous Medical Problems (BLOOD TRANSFUSION 10/2016.) - Surgical History Neurologic Surgeries: Surgical HX of: Neurologic Surgery (BRAIN TUMOR REMOVED 2016.) HEENT Surgeries: Surgical HX of: Eye Surgery (ROHAN CATARACT SX) Orthopedic Surgeries: Surgical HX of;: Implanted Devices (RT LUNG DRAINAGE TUBE) - Family History Family History: Reports;: Family Cancer (MOTHER BREAST CA DAUGHTERE BREAST CA) - Social History Smoking Status: Unknown if ever smoked Frequency of Alcohol Use: None Type of Drug Use: None Results - Labs CBC & BMP: 01/18/17 06:53 01/18/17 06:42 Labs: Her PO2 is 535 with a PCO2 of 34 and a pH of 7.48 - Diagnostic Findings Procedure: Chest x-ray: image reviewed by me, report reviewed by me (Chest x- ray does show multiple pulmonary nodules consistent with metastasis.)
[2017-01-18] MEDS: PANTOPRAZOLE 40 MG VIAL IV SCH (14:07)
--- NOTE | 2017-01-18 14:22 | Ultrasound Report ---
Exam: US venous doppler LE BI Indication: History of DVT edema pain Date: 01/18/2017 9:15 AM Findings: Grayscale color flow duplex/Doppler imaging and spectral analysis waveform imaging was performed with real-time ultrasound with image stored and captured. The right common femoral, superficial femoral reveal nonoccluding thrombus. The popliteal saphenous veins are patent with normal augmentation and compression. There is no evidence of popliteal or Decker's cyst. Abnormal color flow in the nonocclusive thrombus segments. The left common femoral, superficial femoral, popliteal saphenous veins are patent with normal augmentation and compression. There is no evidence of popliteal or Decker's cyst. Normal wave form analysis present. Normal color flow Impression: 1. Nonoccluding thrombus in the right common femoral vein, proximal superficial femoral vein. 2. No left leg DVT PROCEDURE INTERPRETED AT [facility] DEPARTMENT OF RADIOLOGY Final Report Signed by: Dr. Dimitri Kendrick
[2017-01-19] MEDS: PROPOFOL 1,000 MG/100 ML BOTTLE IV SCH ×4 (03:42→19:30)
[2017-01-19 04:02] LABS: ABG Base Excess 2.9 MMOL/L (-2.5-2.5); ABG HCO3 23.6 MMOL/L (20-26); ABG Oxygen Saturation 98.6 % (95-100); ABG PCO2 23.6 MM HG (35-48); ABG PH 7.617 (7.35-7.45); ABG PO2 183.4 MM HG (80-95); ABG TCO2 24.3 MMOL/L (23-27); Allen Test Positive; Pt O2 Delivery Device Ventilator
--- NOTE | 2017-01-19 06:23 | Pulmonology Progress Note ---
Pulmonary - PN: Subj Interval history: Patient is a 72-year-old black lady that has metastatic breast cancer. She has had a malignant right pleural effusion and has a Pleurx catheter on that side. She came in having seizures and is on the ventilator now. She may have some mild right lower lobe pneumonia. She has adequate oxygenation on the ventilator and is fairly stable. She has not had any seizures during the night. She has been comfortable on the ventilator. Exam (Progress Note) - Constitutional Vitals: Period Temp Pulse Resp BP Sys/Navarro Pulse Ox Last 24 Hr 97.0 F-99.4 F 61-98 12-27 101-194/51-107 99-100 Exam: General appearance: no acute distress (The patient is comfortable on the ventilator), under weight - Head Head exam: Present: normal inspection, other (She has alopecia) - Eye Eye exam: Present: EOMI. Absent: scleral icterus Pupils: Present: JENNIFER - ENT ENT exam: Present: other (ET tube is in good position) - Neck Neck exam: Absent: lymphadenopathy, thyromegaly - Respiratory Respiratory exam: Present: clear to auscultation bilaterally, other (She has good breath sounds bilaterally. She does have a very hard right breast with cancer.) - Cardiovascular Cardiovascular exam: Present: regular rate and rhythm. Absent: gallop, systolic murmur - GI/Abdominal GI/Abdominal exam: Present: normal bowel sounds, soft. Absent: ascites, organomegaly, tenderness - Extremities Exam Extremities exam: Absent: calf tenderness, edema - Neurological Exam Neurological exam: Present: other (She does respond at present and no further seizures. She has been mainly sedated on the ventilator.) - Psychiatric Psychiatric exam: Absent: anxious - Skin Skin exam: Present: warm, dry Results - Labs CBC & BMP: 01/18/17 06:53 01/18/17 06:42 Labs: Her PO2 is 183 with a PCO2 of 23 and a pH of 7.61 - Diagnostic Findings Procedure: Chest x-ray: image reviewed by me, report reviewed by me (Chest x- ray does show a slight increased right lower lobe infiltrate. She has fairly extensive metastatic disease) Assessment and Plan (1) On mechanically assisted ventilation Status: Acute Assessment and plan: The patient is on the ventilator and is stable. Will adjust her ventilator and try CPAP and hopefully extubate soon. Current Visit: Yes (2) Brain metastasis Status: Acute Assessment and plan: Patient has had radiation therapy to brain metastasis. Current Visit: No (3) Grand mal seizure disorder Status: Acute Assessment and plan: The patient has been started on seizure medicines. She has had no further seizures. Current Visit: Yes (4) Breast cancer Status: Acute Assessment and plan: Patient has metastatic breast cancer and is getting chemotherapy. Her outlook is poor. Current Visit: Yes
[2017-01-19 08:39] LABS: Calcium 7.6 MG/DL (8.5-10.1); Magnesium 1.1 MG/DL (1.8-2.4); Osmolality,Calculated 280.1 MOS/KG (273-304)
[2017-01-19 08:41] LABS: Potassium 2.5 MMOL/L (3.5-5.1)
[2017-01-19] MEDS ORDERED: POTASSIUM CHLORIDE RIDER 10 MEQ in PREMIX 1 EACH IV PRN (08:41)
[2017-01-19] MEDS ORDERED: MAGNESIUM SULF RIDER 4 GM in PREMIX 1 EACH IV PRN (08:43)
[2017-01-19] MEDS ORDERED: MAGNESIUM SULF RIDER 50 ML IV ONE ×2 (08:46→08:47)
[2017-01-19] MEDS: PANTOPRAZOLE 40 MG VIAL IV SCH (09:08)
[2017-01-19] MEDS: POTASSIUM CHLORIDE RIDER 20 MEQ in PREMIX 1 EACH IV PRN ×3 (09:08→12:52)
[2017-01-19] MEDS: MAGNESIUM SULF RIDER 2 GM in PREMIX 1 EACH IV PRN ×2 (09:09→10:44)
--- NOTE | 2017-01-19 09:28 | XRay Report ---
History: Patient on ventilator. Metastatic breast cancer Date: 01/19/2017 Study: Chest x-ray AP portable Comparison exam: 01/18/2017 The endotracheal tube remains in satisfactory position. The pleural drainage tube on the right is stable in position. A left subclavian Mediport catheter is well-positioned. The cardiomediastinal silhouette is unchanged. Widespread pulmonary metastases are noted as before. There is some ill-defined increased density over the right lung base which is likely related to some mild layering pleural effusion on the right. Osseous structures are unchanged. Impression: Mild right pleural effusion. Stable positioning of the supporting tubes. Widespread pulmonary metastatic disease as before PROCEDURE INTERPRETED AT [facility] DEPARTMENT OF RADIOLOGY Final Report Signed by: Dr. Tenisha Luque
--- NOTE | 2017-01-19 09:30 | Oncology Progress Note ---
Assessment and Plan (1) Grand mal seizure disorder Status: Acute Current Visit: Yes (2) Brain metastasis Status: Acute Current Visit: No (3) Lung cancer Status: Acute Current Visit: No (4) Pleural effusion Status: Acute Current Visit: No Oncology Subjective PN Interval history: Ms. Caicedo is still intubated this morning. She is still on propofol as well. The nurse stated that she gets quite agitated once they try to taper off the propofol. She will begin weaning trials today starting with CPAP per pulmonary' s directions. If she shows signs that she does not need the ventilator hopefully we can implement a rapid wean and have her off of the sedation and mechanical ventilation later today. I am unsure what her mental status is after her significant seizure yesterday. Her CT scan did not show any new brain metastases or hemorrhage. It did not show any obvious ischemic stroke findings either. I have not yet do an MRI. She is DNR after discussing her condition with the family. She is hypokalemic and hypomagnesemic today and these are being replaced per ICU protocol. On exam today her pupils respond to light. She will squeeze her hand some on command. She appears to be resting comfortably. Exam - Constitutional Vitals: Period Temp Pulse Resp BP Sys/Navarro Pulse Ox Last 24 Hr 97.0 F-99.4 F 59-93 10-30 101-179/51-87 95-100 General appearance: normal weight, no acute distress - Head Head Exam: Present: normocephalic, atraumatic - Eye Eye Exam: Present: EOMI Pupils: Present: PERRL - ENT ENT exam: Present: normal exam, normal oropharynx - Neck Neck exam: Absent: lymphadenopathy, thyromegaly - Respiratory Respiratory exam: Present: CTAB. Absent: wheezes - Cardiovascular Cardiovascular exam: Present: RRR. Absent: JVD - GI/Abdominal GI/Abdominal exam: Present: soft. Absent: ascites, distended, mass - Neurological Exam Neurological exam: Present: alert, oriented X3 - Psychiatric Psychiatric exam: Present: normal affect, normal mood - Skin Skin exam: Present: warm, dry Results - Labs CBC & BMP: 01/18/17 06:53 01/19/17 07:38 Lab Results: I have reviewed the past 24 hour labs
[2017-01-19] MEDS: SODIUM CHLORIDE 0.45% 1,000 ML IV SCH (11:25)
[2017-01-20] MEDS: SODIUM CHLORIDE 0.45% 1,000 ML IV SCH (00:57)
[2017-01-20 03:54] LABS: ABG Base Excess -1.8 MMOL/L (-2.5-2.5); ABG HCO3 22.9 MMOL/L (20-26); ABG Oxygen Saturation 99.2 % (95-100); ABG PCO2 29.5 MM HG (35-48); ABG PH 7.465 (7.35-7.45); ABG TCO2 19.4 MMOL/L (23-27)
[2017-01-20 04:30] LABS: Basophils % 0.4 % (0.0-0.8); Eosinophils % 1.2 % (0.00-10.9); Hematocrit 22.9 VOL% (35.7-47.0); Hemoglobin 7.7 GM/DL (12.0-16.0); Immature Granulocytes % 0.4 %; Immature Granulocytes Absolute 0.01 #; Lymphocytes # 1.1 10*3/uL (1.4-4.0); Mean Corpuscular HGB Conc 33.6 GM/DL (32-36); Mean Corpuscular Hemoglobin 28 PG (27-34); Mean Corpuscular Volume 83.6 FL (87-102); Mean Platelet Volume 9.9 FL (9.6-12.0); Monocytes # 0.4 10*3/uL (0.11-0.8); Monocytes % 13.6 % (1.7-12.7); Neutrophils # 1.1 10*3/uL (1.4-7.4); Neutrophils % 41.4 % (38.7-73.9); Platelet Count 119 T/CUMM (130-400); Red Blood Count 2.74 MC/CUMM (3.8-5.5); Red Cell Distribution Width 18.6 % (9.3-17.3); White Blood Count 2.6 T/CUMM (4-12)
[2017-01-20] MEDS: PROPOFOL 1,000 MG/100 ML BOTTLE IV SCH ×3 (04:51→16:22)
[2017-01-20 05:02] LABS: Calcium 7.4 MG/DL (8.5-10.1); Magnesium 2.1 MG/DL (1.8-2.4); Osmolality,Calculated 278.1 MOS/KG (273-304); Potassium 3.3 MMOL/L (3.5-5.1)
[2017-01-20] MEDS: POTASSIUM CHLORIDE RIDER 20 MEQ in PREMIX 1 EACH IV PRN ×2 (05:50→09:37)
--- NOTE | 2017-01-20 07:03 | Pulmonology Progress Note ---
Pulmonary - PN: Subj Interval history: Patient is a 72-year-old black lady that has metastatic breast cancer. She has had a malignant right pleural effusion and has a Pleurx catheter on that side. She came in having seizures and is on the ventilator now. She may have some mild right lower lobe pneumonia. She has adequate oxygenation on the ventilator and is fairly stable. She did do CPAP some yesterday but did fatigue. She has not had any further seizures. Her oxygenation is still stable. We will continue weaning for now. Exam (Progress Note) - Constitutional Vitals: Period Temp Pulse Resp BP Sys/Navarro Pulse Ox Last 24 Hr 97.5 F-98.5 F 58-80 8-38 96-179/50-84 95-100 Exam: General appearance: no acute distress (The patient is comfortable on the ventilator), under weight - Head Head exam: Present: normal inspection, other (She has alopecia) - Eye Eye exam: Present: EOMI. Absent: scleral icterus Pupils: Present: JENNIFER - ENT ENT exam: Present: other (ET tube is in good position) - Neck Neck exam: Absent: lymphadenopathy, thyromegaly - Respiratory Respiratory exam: Present: She does have slightly diminished breath sounds on the right. She is not wheezing any. She does have a hard breast lump in her right breast which is cancer. - Cardiovascular Cardiovascular exam: Present: regular rate and rhythm. Absent: gallop, systolic murmur - GI/Abdominal GI/Abdominal exam: Present: normal bowel sounds, soft. Absent: ascites, organomegaly, tenderness - Extremities Exam Extremities exam: Absent: calf tenderness, edema - Neurological Exam Neurological exam: Present: other (She does respond at present and no further seizures. She has been mainly sedated on the ventilator.) - Psychiatric Psychiatric exam: Absent: anxious - Skin Skin exam: Present: warm, dry Results - Labs CBC & BMP: 01/20/17 04:25 01/20/17 04:25 Labs: The PO2 is 173 with a PCO2 of 29 and a pH of 7.46 - Diagnostic Findings Procedure: Chest x-ray: image reviewed by me, report reviewed by me (Chest x- ray does show some right lower lobe infiltrate. She has extensive metastatic disease.) Assessment and Plan (1) On mechanically assisted ventilation Status: Acute Assessment and plan: The patient is on the ventilator and is stable. Will adjust her ventilator and try CPAP and hopefully extubate soon. Her oxygenation is still doing very well. Current Visit: Yes (2) Brain metastasis Status: Acute Assessment and plan: Patient has had radiation therapy to brain metastasis. Current Visit: No (3) Grand mal seizure disorder Status: Acute Assessment and plan: The patient has been started on seizure medicines. She has had no further seizures. Current Visit: Yes (4) Breast cancer Status: Acute Assessment and plan: Patient has metastatic breast cancer and is getting chemotherapy. Her outlook is poor. Current Visit: Yes
--- NOTE | 2017-01-20 08:11 | Oncology Progress Note ---
Assessment and Plan (1) Grand mal seizure disorder Status: Acute Current Visit: Yes (2) Brain metastasis Status: Acute Current Visit: No (3) Lung cancer Status: Acute Current Visit: No (4) Pleural effusion Status: Acute Current Visit: No Oncology Subjective PN Interval history: Ms. Caicedo is still on the ventilator. She did not tolerate CPAP well yesterday. She becomes quite tachypneic and agitated during CPAP. She is not bouncing back as soon as we would like to see. This makes me suspicious that she did have some type of underlying stroke or brain event that triggered her seizure. We will not know her current mental status until we are able to get her off the ventilator and turn off her sedation. She is DNR and the family is aware of her poor prognosis. They are not at a place where they would like to disconnect the ventilator yet. I am holding anticoagulation at this time for her right lower extremity DVT. This clot is been present now for 3 months. With her current situation, anticoagulating her DVT is not of urgent importance. We anticoagulated her previously, she had significant amounts of blood the drain from her right Pleurx catheter. Her hemoglobin 7.7 today. Given that we are trying to focus more on comfort measures and possible hospice care, I will hold off on a blood transfusion for now. This will have to be considered if we are unable to get her off the ventilator within the next day. A higher blood volume may assist with her respiratory efforts. Exam - Constitutional Vitals: Period Temp Pulse Resp BP Sys/Navarro Pulse Ox Last 24 Hr 97.5 F-98.5 F 58-80 8-38 96-179/50-84 95-100 General appearance: normal weight, no acute distress - Head Head Exam: Present: normocephalic, atraumatic - Eye Eye Exam: Absent: scleral icterus Pupils: Present: PERRL - Neck Neck exam: Absent: lymphadenopathy - Respiratory Respiratory exam: Present: CTAB. Absent: wheezes - Cardiovascular Cardiovascular exam: Present: RRR. Absent: JVD, systolic murmur - GI/Abdominal GI/Abdominal exam: Present: soft. Absent: ascites, distended, mass - Skin Skin exam: Present: warm, dry Results - Labs CBC & BMP: 01/20/17 04:25 01/20/17 04:25 Lab Results: I have reviewed the past 24 hour labs
--- NOTE | 2017-01-20 08:34 | XRay Report ---
History: Pneumonia. Metastatic breast cancer Date: 01/20/2017 Study: Chest x-ray AP portable Comparison exam: 01/19/2017 The endotracheal tube and right chest tube are stable in position. A left subclavian Mediport catheter is stable in appearance. The cardiomediastinal silhouette is unchanged. There is no gross pulmonary vascular engorgement. There is mildly improved aeration in the right lung base related to mildly decreased pleural effusion and right basilar atelectasis/infiltrate. Widespread noncalcified pulmonary nodules are noted throughout both lungs as before. There is no interval worsening. Osseous structures are similar. Impression: Mildly improved aeration in the right lung base compared to the previous study. Otherwise unchanged PROCEDURE INTERPRETED AT [facility] DEPARTMENT OF RADIOLOGY Final Report Signed by: Dr. Tenisha Luque
[2017-01-20] MEDS ORDERED: DEXTROSE 50% 25 GM/50 ML SYRINGE IV PRN (08:41)
[2017-01-20] MEDS ORDERED: DEXTROSE 50% 25 GM/50 ML SYRINGE IV ONE (08:42)
[2017-01-20] MEDS: DEXT 5% NACL 0.45% KCL 20 MEQ 20 MEQ/1,000 ML BAG IV SCH (09:38)
[2017-01-20] MEDS: PANTOPRAZOLE 40 MG VIAL IV SCH (09:40)
[2017-01-21] MEDS: DEXT 5% NACL 0.45% KCL 20 MEQ 20 MEQ/1,000 ML BAG IV SCH ×2 (00:05→14:37)
[2017-01-21] MEDS: PROPOFOL 1,000 MG/100 ML BOTTLE IV SCH ×2 (00:58→09:19)
[2017-01-21 03:51] LABS: Eosinophils % 1.5 % (0.00-10.9); Hematocrit 23.5 VOL% (35.7-47.0); Hemoglobin 7.9 GM/DL (12.0-16.0); Immature Granulocytes % 0.4 %; Immature Granulocytes Absolute 0.01 #; Lymphocytes # 0.9 10*3/uL (1.4-4.0); Lymphocytes % 34.2 % (21.3-54.2); Mean Corpuscular HGB Conc 33.6 GM/DL (32-36); Mean Corpuscular Hemoglobin 29 PG (27-34); Mean Corpuscular Volume 84.8 FL (87-102); Mean Platelet Volume 10.6 FL (9.6-12.0); Monocytes # 0.5 10*3/uL (0.11-0.8); Monocytes % 18.5 % (1.7-12.7); Neutrophils # 1.3 10*3/uL (1.4-7.4); Neutrophils % 45.4 % (38.7-73.9); Platelet Count 142 T/CUMM (130-400); Red Blood Count 2.77 MC/CUMM (3.8-5.5); White Blood Count 2.8 T/CUMM (4-12)
[2017-01-21 03:58] LABS: ABG Base Excess -1.5 MMOL/L (-2.5-2.5); ABG HCO3 21.7 MMOL/L (20-26); ABG Oxygen Saturation 98.7 % (95-100); ABG PCO2 30.4 MM HG (35-48); ABG PH 7.471 (7.35-7.45); ABG PO2 177.5 MM HG (80-95); ABG TCO2 22.6 MMOL/L (23-27); Allen Test Positive; Pt O2 Delivery Device Ventilator
[2017-01-21 04:36] LABS: Band Neutrophils 3 % (0-10); Lymphocytes 27 % (20-55); Myelocytes 3 %; Segmented Neutrophils 60 % (50-85); Total Cells Counted 100
[2017-01-21 04:37] LABS: Acanthocytes Few; Anisocytosis 1+; Hypochromasia 1+; Platelet Estimate Adequate
[2017-01-21 04:44] LABS: Albumin 1.9 G/DL (3.4-5.0); Bilirubin,Total 0.4 MG/DL (0.2-1.0); Calcium 7.7 MG/DL (8.5-10.1); Osmolality,Calculated 289.7 MOS/KG (273-304); Potassium 4.5 MMOL/L (3.5-5.1); Total Protein 5.8 G/DL (6.4-8.3)
--- NOTE | 2017-01-21 07:19 | Oncology Progress Note ---
Assessment and Plan (1) Grand mal seizure disorder Status: Acute Current Visit: Yes (2) Brain metastasis Status: Acute Current Visit: No (3) Lung cancer Status: Acute Current Visit: No (4) Pleural effusion Status: Acute Current Visit: No Oncology Subjective PN Interval history: Ms. Caicedo was still unable to tolerate CPAP yesterday. I have spoken with pulmonology today will likely go ahead and just extubate her and she likely has good pulmonary reserve and most of her intolerance to CPAP we think is more agitation related. I am unsure what her baseline mental status will be once we were able to get her off of sedation. Her mental status once we have the sedation off will dictate our future plans. I am hoping the family will agree to hospice care once we get ready for discharge. At this point I am uncertain that she is even going to survive the hospitalization since we do not know where her mental status is currently. Her hemoglobin today is stable at 7.9. My thoughts were to hold transfusion for now depending on how she looks once we have her extubated. I am also holding anticoagulation of the known DVT in her right leg. Exam - Constitutional Vitals: Period Temp Pulse Resp BP Sys/Navarro Pulse Ox Last 24 Hr 97.0 F-98.8 F 60-97 10-20 104-166/46-97 100-100 General appearance: normal weight, no acute distress - Head Head Exam: Present: normocephalic, atraumatic - Eye Eye Exam: Present: EOMI. Absent: scleral icterus Pupils: Present: PERRL - Neck Neck exam: Absent: lymphadenopathy, thyromegaly - Respiratory Respiratory exam: Present: CTAB. Absent: wheezes - Cardiovascular Cardiovascular exam: Present: RRR. Absent: irregular rhythm, JVD - GI/Abdominal GI/Abdominal exam: Present: soft. Absent: ascites, distended, firm, mass - Neurological Exam Neurological exam: Present: alert, oriented X3 - Psychiatric Psychiatric exam: Present: normal affect, normal mood - Skin Skin exam: Present: warm, dry Results - Labs CBC & BMP: 01/21/17 03:45 01/21/17 03:45 Lab Results: I have reviewed the past 24 hour labs - Diagnostic Findings Procedure: Chest x-ray: report reviewed by me
--- NOTE | 2017-01-21 07:24 | Pulmonology Progress Note ---
Pulmonary - PN: Subj Interval history: Patient is a 72-year-old black lady that has metastatic breast cancer. She has had a malignant right pleural effusion and has a Pleurx catheter on that side. She came in having seizures and is on the ventilator now. She may have some mild right lower lobe pneumonia. She has adequate oxygenation on the ventilator and is fairly stable. She has not had any further seizures. Her oxygenation is excellent. Overall she appears fairly stable. We will try to extubate today. Exam (Progress Note) - Constitutional Vitals: Period Temp Pulse Resp BP Sys/Navarro Pulse Ox Last 24 Hr 97.0 F-98.8 F 60-97 10-20 104-166/46-97 100-100 Exam: General appearance: no acute distress (The patient is comfortable on the ventilator. She does respond and is not having any distress at present.), under weight - Head Head exam: Present: normal inspection, other (She has alopecia) - Eye Eye exam: Present: EOMI. Absent: scleral icterus Pupils: Present: JENNIFER - ENT ENT exam: Present: other (ET tube is in good position) - Neck Neck exam: Absent: lymphadenopathy, thyromegaly - Respiratory Respiratory exam: Present: She does have slightly diminished breath sounds on the right. She is not wheezing any. She does have a hard breast lump in her right breast which is cancer. - Cardiovascular Cardiovascular exam: Present: regular rate and rhythm. Absent: gallop, systolic murmur - GI/Abdominal GI/Abdominal exam: Present: normal bowel sounds, soft. Absent: ascites, organomegaly, tenderness - Extremities Exam Extremities exam: Absent: calf tenderness, edema - Neurological Exam Neurological exam: Present: other (She does respond at present and no further seizures. She has been mainly sedated on the ventilator.) - Psychiatric Psychiatric exam: Absent: anxious - Skin Skin exam: Present: warm, dry Results - Labs CBC & BMP: 01/21/17 03:45 01/21/17 03:45 Labs: PO2 is 177 with a PCO2 of 30 and a pH of 7.47 - Diagnostic Findings Procedure: Chest x-ray: image reviewed by me, report reviewed by me (Chest x- ray stable.) Assessment and Plan (1) On mechanically assisted ventilation Status: Acute Assessment and plan: The patient is on the ventilator and is stable. She has not wanted to do CPAP that well but she is weak. Otherwise everything looks stable and she should do okay off the ventilator. Current Visit: Yes (2) Brain metastasis Status: Acute Assessment and plan: Patient has had radiation therapy to brain metastasis. Current Visit: No (3) Grand mal seizure disorder Status: Acute Assessment and plan: The patient has been started on seizure medicines. She has had no further seizures. She appears to be stable neurologically. Current Visit: Yes (4) Breast cancer Status: Acute Assessment and plan: Patient has metastatic breast cancer and is getting chemotherapy. Her outlook is poor. Current Visit: Yes
--- NOTE | 2017-01-21 07:34 | XRay Report ---
Single view the chest. Indication: Right lower lobe pneumonia. The heart is normal in size. The distal tip of an endotracheal tube is about 3 cm above the issac. Chemo-Port remains in satisfactory position. Chest tube on the right, unchanged in position. Numerous metastatic foci are again identified within the lung gar. There is infiltrate, and atelectasis, and pleural effusion at the right lung base. This is similar to the previous exam. No pneumothorax is identified. Degenerative changes of the spinal column. Impression: No interval change. PROCEDURE INTERPRETED AT [facility] DEPARTMENT OF RADIOLOGY Final Report Signed by: Dr. Betty Mejias
[2017-01-21] MEDS: PANTOPRAZOLE 40 MG VIAL IV SCH (09:14)
--- NOTE | 2017-01-21 11:37 | Physician Query Form ---
CLICK EDIT DOCUMENT TO SELECT QUERY ANSWER --> OK --> SIGN Aidee Grvaes RN, CCDS Certified Clinical Cable Maintainer W) [phone] (f) [phone] [email or web address] PROVIDERS: Make your selection(s) from the choices in EACH section by typing an "x" and enter comments in the comment section. Please use your independent medical judgment in providing your response. This request does not imply that any particular answer is desired or expected. CLINICAL INDICATORS: (Providers should not edit this section) The medical record indicates that the patient was admitted with grand mal seizure disorder, brain mets, lung cancer, " developed respiratory arrest and they were bagging her when she arrived to the emergency room", "apneic here in the emergency department" and the patient was placed on the ventilator. If possible, please further clarify the type and acuity of respiratory diagnosis : ACUITY: ( x) Acute ( ) Chronic ( ) Acute on Chronic TYPE: ( ) Respiratory failure with hypoxia ( x) Respiratory failure with hypercapnia ( ) Respiratory Arrest ( ) Postprocedural/postoperative respiratory failure ( ) Respiratory Insufficiency ( ) ARDS (Adult/Acute Respiratory Distress Syndrome) ( ) Other, please specify: ( ) Clinically unable to determine Recognized criteria for respiratory failure PH <7.35 or >7.45 PO2 <60 PCO2 >50 RR >24 O2 Sat <90% on RA or <95% on O2 Use of accessory muscles Unable to speak in full sentences Intubation is not required COMMENTS: PLEASE ALSO DOCUMENT RESPONSE IN PROGRESS NOTES AND/OR DISCHARGE SUMMARY Use of terms such as suspected, likely, or probable (associated with a specific diagnosis that is being evaluated, monitored, or treated as if it exists) are acceptable and can be restated in the discharge summary if not ruled out. MTDD
[2017-01-21] MEDS: levETIRAcetam 500 MG TABLET PO SCH (20:28)
[2017-01-22] MEDS ORDERED: ACETAMINOPHEN 325 MG TABLET ONE (02:28)
[2017-01-22] MEDS ORDERED: ACETAMINOPHEN 325 MG TABLET PO PRN (02:30)
[2017-01-22] MEDS: DEXT 5% NACL 0.45% KCL 20 MEQ 20 MEQ/1,000 ML BAG IV SCH ×2 (02:37→21:53)
[2017-01-22 05:03] LABS: Eosinophils % 1.4 % (0.00-10.9); Hematocrit 21.9 VOL% (35.7-47.0); Hemoglobin 7.1 GM/DL (12.0-16.0); Immature Granulocytes % 0.3 %; Immature Granulocytes Absolute 0.01 #; Lymphocytes # 1.3 10*3/uL (1.4-4.0); Lymphocytes % 43.3 % (21.3-54.2); Mean Corpuscular HGB Conc 32.4 GM/DL (32-36); Mean Corpuscular Hemoglobin 28 PG (27-34); Mean Corpuscular Volume 86.9 FL (87-102); Mean Platelet Volume 10.9 FL (9.6-12.0); Monocytes # 0.6 10*3/uL (0.11-0.8); Monocytes % 20.3 % (1.7-12.7); Neutrophils % 34.7 % (38.7-73.9); Platelet Count 142 T/CUMM (130-400); Red Blood Count 2.52 MC/CUMM (3.8-5.5); Red Cell Distribution Width 19.2 % (9.3-17.3); White Blood Count 2.9 T/CUMM (4-12)
[2017-01-22 05:52] LABS: Band Neutrophils 1 % (0-10); Eosinophils 2 % (0-10); Lymphocytes 27 % (20-55); Segmented Neutrophils 55 % (50-85); Total Cells Counted 100
[2017-01-22 05:53] LABS: Hypochromasia 1+; Microcytosis 1+; Platelet Estimate Adequate
[2017-01-22] MEDS ORDERED: SODIUM CHLORIDE 0.9% 250 ML IV PRN (07:33)
--- NOTE | 2017-01-22 07:37 | Oncology Progress Note ---
Assessment and Plan (1) Grand mal seizure disorder Status: Acute Current Visit: Yes (2) Brain metastasis Status: Acute Current Visit: No (3) Lung cancer Status: Acute Current Visit: No (4) Pleural effusion Status: Acute Current Visit: No (5) Anemia Status: Acute Current Visit: Yes Oncology Subjective PN Interval history: Ms. Caicedo is now extubated and has been transferred to a regular hospital bed. She still appears quite weak but is awake and alert and able to answer questions. I will give her 2 units of blood today since her hemoglobin is around 7. I will also schedule an MRI of her brain to be done to evaluate for the etiology of her recent seizure. I explained to her today that we are at a fork in the road we need to decide if we are going to do any further treatment. I am unsure if she will benefit from any further chemotherapy and I am also concerned that she is actually progressing through her recent chemotherapy. We will see how she does after 2 units of blood and see what the MRI shows us. She has a known DVT in her right leg I have not placed her on anticoagulation yet. We will hold off on physical therapy for now as well. Her prognosis is exceedingly poor. I will continue to address whether we are going to do further chemotherapy versus home hospice daily with her throughout her hospital stay. She will likely be in the hospital for a few more days. Exam - Constitutional Vitals: Period Temp Pulse Resp BP Sys/Navarro Pulse Ox Last 24 Hr 98.6 F-100.0 F 80-118 10-27 114-171/54-90 95-100 General appearance: normal weight, no acute distress - Head Head Exam: Present: normocephalic, atraumatic - Eye Eye Exam: Present: EOMI Pupils: Present: PERRL - ENT ENT exam: Present: normal exam, normal oropharynx - Neck Neck exam: Absent: lymphadenopathy, thyromegaly - Respiratory Respiratory exam: Present: CTAB. Absent: wheezes - Cardiovascular Cardiovascular exam: Present: RRR. Absent: JVD - GI/Abdominal GI/Abdominal exam: Present: soft. Absent: ascites, distended, mass - Neurological Exam Neurological exam: Present: alert, oriented X3 - Psychiatric Psychiatric exam: Present: normal affect, normal mood - Skin Skin exam: Present: warm, dry Results - Labs CBC & BMP: 01/22/17 04:00 01/21/17 03:45 Lab Results: I have reviewed the past 24 hour labs
[2017-01-22] MEDS: levETIRAcetam 500 MG TABLET PO SCH ×2 (09:20→21:54)
[2017-01-22] MEDS: cloNIDine 0.1 MG TABLET PO SCH ×2 (09:21→21:54)
--- NOTE | 2017-01-22 11:06 | Pulmonology Progress Note ---
Pulmonary - PN: Subj Interval history: Patient is a 72-year-old black lady that has metastatic breast cancer. She has had a malignant right pleural effusion and has a Pleurx catheter on that side. She came in having seizures and is on the ventilator now. She may have some mild right lower lobe pneumonia. She was extubated yesterday and did well. She says she rested fairly well last night. She is not having any trouble breathing at present. She does have significant anemia and is getting transfused. She did have DVT in her right leg. She looks like she is resting comfortably at present. Exam (Progress Note) - Constitutional Vitals: Period Temp Pulse Resp BP Sys/Navarro Pulse Ox Last 24 Hr 98.6 F-100.0 F 94-118 10-27 114-198/54-93 95-100 Exam: General appearance: no acute distress (The patient is is alert and talking and looks comfortable lying in bed ) - Head Head exam: Present: normal inspection, other (She has alopecia) - Eye Eye exam: Present: EOMI. Absent: scleral icterus Pupils: Present: JENNIFER - ENT ENT exam: Present: Unremarkable - Neck Neck exam: Absent: lymphadenopathy, thyromegaly - Respiratory Respiratory exam: Present: She does have slightly diminished breath sounds on the right. She is not wheezing any. She does have a hard breast lump in her right breast which is cancer. She seems to be moving air okay today. - Cardiovascular Cardiovascular exam: Present: regular rate and rhythm. Absent: gallop, systolic murmur - GI/Abdominal GI/Abdominal exam: Present: normal bowel sounds, soft. Absent: ascites, organomegaly, tenderness - Extremities Exam Extremities exam: Absent: calf tenderness, edema, her legs do not seem to be swollen - Neurological Exam Neurological exam: Present: other (She is alert and talking and is comfortable. ) - Psychiatric Psychiatric exam: Absent: anxious - Skin Skin exam: Present: warm, dry Results - Labs CBC & BMP: 01/22/17 04:00 01/21/17 03:45 Assessment and Plan (1) On mechanically assisted ventilation Status: Resolved Assessment and plan: The patient was extubated yesterday and is doing reasonably well from a pulmonary standpoint. Current Visit: No (2) Brain metastasis Status: Acute Assessment and plan: Patient has had radiation therapy to brain metastasis. She will get an MRI. Current Visit: No (3) Grand mal seizure disorder Status: Acute Assessment and plan: The patient has been started on seizure medicines. She has had no further seizures. She appears to be stable neurologically. Current Visit: Yes (4) Breast cancer Status: Acute Assessment and plan: Patient has metastatic breast cancer and is getting chemotherapy. Her outlook is poor. Current Visit: Yes (5) DVT (deep venous thrombosis) Status: Acute Assessment and plan: She may not be able to tolerate anticoagulation and may need a filter. Current Visit: Yes
[2017-01-22] MEDS ORDERED: VANCOMYCIN INJ 1,000 MG in SODIUM CHLORIDE 0.9% 250 ML IV ONE (11:59)
--- NOTE | 2017-01-22 12:35 | Magnetic Resonance Report ---
MR head/brain w and wo con Indication: History of brain metastasis, new seizure Comparison: CT brain dated January 18, 2017 Technique: Multiplanar magnetic resonance imaging was performed of the brain before and after the administration of 9 cc Dotarem intravenous contrast. Findings: Mild periventricular and subcortical T2 hyperintensity noted which is nonspecific but consistent with chronic microvascular ischemic change. Small foci of encephalomalacia within the right occipital lobe consistent with old infarct. Old lacunar infarcts involving the right thalamus and guzman radiata of the left frontal lobe. Small encephalomalacia suggested within the left parietal and occipital lobes consistent with old infarcts. Moderate global volume loss present. No abnormal postcontrast intracranial enhancement. Small bilateral mastoid effusions. The midline structures are nondisplaced. There is no convincing evidence of hydrocephalus. The zapata-white matter differentiation is maintained. There is no convincing evidence of acute intracranial hemorrhage or ischemia. The included orbits and their contents appear within normal limits. T2 major vascular flow voids are maintained. IMPRESSION: No convincing MR evidence of intracranial metastatic disease. There is small encephalomalacia suggested within the left parietal and left occipital regions with associated T2 hyperintensity which most likely old infarcts. There is equivocal associated volume loss. Attention to these areas on subsequent imaging is advised as it would be difficult to exclude early metastatic lesion. There is no abnormal intracranial enhancement. Probable chronic microvascular ischemic change and volume loss. Small old infarcts within the right cerebellum. Old lacunar infarcts involving the right thalamus and guzman radiata of the left frontal lobe. Small bilateral mastoid effusions. PROCEDURE INTERPRETED AT [facility] DEPARTMENT OF RADIOLOGY Final Report Signed by: Dr Beka Garg
[2017-01-23 04:16] LABS: Basophils % 0.4 % (0.0-0.8); Eosinophils # 0.1 10*3/uL (0.0-0.87); Hemoglobin 9.5 GM/DL (12.0-16.0); Immature Granulocytes % 0.4 %; Lymphocytes % 38.7 % (21.3-54.2); Mean Corpuscular HGB Conc 33.9 GM/DL (32-36); Mean Corpuscular Hemoglobin 29 PG (27-34); Mean Corpuscular Volume 86.7 FL (87-102); Mean Platelet Volume 10.5 FL (9.6-12.0); Monocytes # 0.7 10*3/uL (0.11-0.8); Monocytes % 27.3 % (1.7-12.7); Neutrophils # 0.8 10*3/uL (1.4-7.4); Neutrophils % 31.2 % (38.7-73.9); Platelet Count 136 T/CUMM (130-400); Red Blood Count 3.23 MC/CUMM (3.8-5.5); Red Cell Distribution Width 17.5 % (9.3-17.3); White Blood Count 2.5 T/CUMM (4-12)
[2017-01-23 04:17] LABS: Immature Granulocytes Absolute 0.01 #
[2017-01-23 04:37] LABS: Albumin 1.7 G/DL (3.4-5.0); Bilirubin,Total 0.6 MG/DL (0.2-1.0); Calcium 7.8 MG/DL (8.5-10.1); Magnesium 1.5 MG/DL (1.8-2.4); Osmolality,Calculated 283.7 MOS/KG (273-304); Potassium 4.3 MMOL/L (3.5-5.1); Total Protein 5.4 G/DL (6.4-8.3)
[2017-01-23 04:44] LABS: Band Neutrophils 3 % (0-10); Eosinophils 1 % (0-10); Lymphocytes 33 % (20-55); Metamyelocytes 2 %; Myelocytes 3 %; Segmented Neutrophils 37 % (50-85); Total Cells Counted 100
[2017-01-23 04:45] LABS: Anisocytosis 1+; Hypochromasia 1+; Platelet Estimate Normal
--- NOTE | 2017-01-23 07:48 | Oncology Progress Note ---
Assessment and Plan - Time spent with patient Time spent with patient: Greater than 30 minutes (1) Grand mal seizure disorder Status: Acute Current Visit: Yes (2) Brain metastasis Status: Acute Current Visit: No (3) Lung cancer Status: Acute Current Visit: No (4) Pleural effusion Status: Acute Current Visit: No (5) Anemia Status: Acute Current Visit: Yes Oncology Subjective PN Interval history: Ms. Caicedo seems to be doing much better today. She is awake and alert and sitting on the side of the bed. Her energy level is better after receiving 2 units of blood yesterday. Her MRI did not show any new or acute changes in her brain. The etiology of her seizure remains unknown. She has not had any further seizure activity now that she is on Keppra. We had a lengthy discussion today about our future plan of care. I have offered home hospice versus continued palliative chemotherapy. I do not think the palliative chemotherapy that we are doing is working very well and I recommended that she strongly consider the hospice route. I think she would be a good candidate for an IVC filter to be placed. I do not like the idea of her being on long-term anticoagulation. She would like to think about this before making a final decision. Given this blood clot is been in place now for 2-3 months. I think we can go ahead and start physical therapy even before we address the clot. Her prognosis remains very poor. She and her daughters are aware of this. Exam - Constitutional Vitals: Period Temp Pulse Resp BP Sys/Navarro Pulse Ox Last 24 Hr 97.9 F-99.7 F 77-101 16-24 119-198/59-93 97-100 General appearance: normal weight, no acute distress - Head Head Exam: Present: normocephalic, atraumatic - Eye Eye Exam: Present: EOMI Pupils: Present: PERRL - ENT ENT exam: Present: normal exam, normal oropharynx - Neck Neck exam: Absent: lymphadenopathy, thyromegaly - Respiratory Respiratory exam: Present: CTAB. Absent: wheezes - Cardiovascular Cardiovascular exam: Present: RRR. Absent: JVD, systolic murmur - GI/Abdominal GI/Abdominal exam: Present: soft. Absent: ascites, distended, mass - Neurological Exam Neurological exam: Present: alert, oriented X3 - Psychiatric Psychiatric exam: Present: normal affect, normal mood - Skin Skin exam: Present: warm, dry Results - Labs CBC & BMP: 01/23/17 03:40 01/23/17 03:40 Lab Results: I have reviewed the past 24 hour labs - Diagnostic Findings Procedure: MRI: report reviewed by me
[2017-01-23] MEDS: levETIRAcetam 500 MG TABLET PO SCH ×2 (09:34→20:42)
[2017-01-23] MEDS: MAGNESIUM OXIDE 400 MG TABLET PO SCH ×2 (09:34→20:43)
[2017-01-23] MEDS: cloNIDine 0.1 MG TABLET PO SCH ×2 (09:34→20:43)
[2017-01-23] MEDS: MAGNESIUM SULF RIDER 2 GM in PREMIX 1 EACH IV PRN (09:34)
[2017-01-23] MEDS: DEXT 5% NACL 0.45% KCL 20 MEQ 20 MEQ/1,000 ML BAG IV SCH ×2 (09:37→22:57)
--- NOTE | 2017-01-23 11:18 | Physician Query Form ---
CLICK EDIT DOCUMENT TO SELECT QUERY ANSWER --> OK --> SIGN Aidee Graves RN, CCDS Certified Clinical Flood Control Engineer W) [phone] (f) [phone] [email or web address] PROVIDERS: Make your selection(s) from the choices in EACH section by typing an "x" and enter comments in the comment section. Please use your independent medical judgment in providing your response. This request does not imply that any particular answer is desired or expected. CLINICAL INDICATORS: (Providers should not edit this section) The medical record indicates that the patient was admitted with grand mal seizure disorder, HH has dropped to 7.1/ 21.9 and the patient was given two units of blood. "We began palliative chemotherapy approximately 3 months ago" Based on the above, could you clarify which of the following conditions you are evaluating, treating, and/or monitoring? ( ) Blood loss anemia ( ) acute ( ) chronic ( ) acute on chronic ( ) Acute blood loss anemia on baseline chronic anemia ( x) Iron deficiency anemia not associated with blood loss ( ) Dilutional anemia due to IV fluids ( x) Anemia due to chemotherapy ( ) Anemia due to neoplastic disease ( ) Pernicious anemia ( ) Aplastic anemia ( ) Hemolytic anemia ( ) immune ( ) non-immune - please specify cause: ( ) Anemia due to other condition, please specify: ( ) Clinically unable to determine COMMENTS: PLEASE ALSO DOCUMENT RESPONSE IN PROGRESS NOTES AND/OR DISCHARGE SUMMARY Use of terms such as suspected, likely, or probable (associated with a specific diagnosis that is being evaluated, monitored, or treated as if it exists) are acceptable and can be restated in the discharge summary if not ruled out. MTDD
--- NOTE | 2017-01-23 12:53 | Pulmonology Progress Note ---
Pulmonary - PN: Subj Interval history: Patient is a 72-year-old black lady that has metastatic breast cancer. She has had a malignant right pleural effusion and has a Pleurx catheter on that side. She came in having seizures and was on the ventilator now. She may have some mild right lower lobe pneumonia. She was extubated and has been doing better. She received of blood yesterday and looks better today. She says she had a good night. Her shortness of breath has resolved. She is not having any pleurisy. She has been found to have DVT of her right leg. She did not tolerate any anticoagulation early on. She is still deciding about chemotherapy. She has not had any further seizures. Exam (Progress Note) - Constitutional Vitals: Period Temp Pulse Resp BP Sys/Navarro Pulse Ox Last 24 Hr 97.9 F-99.7 F 77-101 16-24 119-164/59-85 94-100 Exam: General appearance: no acute distress (The patient is sitting up and talking and looks comfortable) - Head Head exam: Present: normal inspection, other (She has alopecia) - Eye Eye exam: Present: EOMI. Absent: scleral icterus Pupils: Present: JENNIFER - ENT ENT exam: Present: Unremarkable - Neck Neck exam: Absent: lymphadenopathy, thyromegaly - Respiratory Respiratory exam: Present: She does have slightly diminished breath sounds on the right. She is not wheezing any. She does have a hard breast lump in her right breast which is cancer. She seems to be moving air okay today. - Cardiovascular Cardiovascular exam: Present: regular rate and rhythm. Absent: gallop, systolic murmur - GI/Abdominal GI/Abdominal exam: Present: normal bowel sounds, soft. Absent: ascites, organomegaly, tenderness - Extremities Exam Extremities exam: Absent: calf tenderness, edema, her legs do not seem to be swollen - Neurological Exam Neurological exam: Present: other (She is alert and talking and is comfortable. ) - Psychiatric Psychiatric exam: Absent: anxious - Skin Skin exam: Present: warm, dry Results - Labs CBC & BMP: 01/23/17 03:40 01/23/17 03:40 Assessment and Plan (1) Brain metastasis Status: Acute Assessment and plan: Patient had an MRI that showed some small infarcts but no definite metastasis. Current Visit: No (2) Grand mal seizure disorder Status: Acute Assessment and plan: The patient has been started on seizure medicines. She has had no further seizures. She appears to be stable neurologically. Current Visit: Yes (3) Breast cancer Status: Acute Assessment and plan: Patient has metastatic breast cancer and is trying to decide about further chemotherapy. Current Visit: Yes (4) DVT (deep venous thrombosis) Status: Acute Assessment and plan: She may not be able to tolerate anticoagulation and may need a filter. She is thinking about a filter. She may tolerate low-dose Eliquis. She is doing fairly well at present. Her pulmonary status is stable now and I will sign off. Current Visit: Yes
--- NOTE | 2017-01-23 13:16 | Inventional Radiology Consult ---
Assessment and Plan - Time spent with patient Time spent with patient: Less than 30 minutes IR Consult - Data of Consult Patient: new to practice Consult date: 01/23/17 Requesting Physician: Albert Cheema - Consult Narrative Reason for consult: Metastatic breast cancer and large right lower extremity DVT History of present illness: Sascha is a 72 year old F Admitted with new onset seizures. History of advanced breast cancer with widespread metastatic disease throughout the chest, abdomen and pelvis. Recent MRI however does not demonstrate intracranial metastatic disease at this time. Additional scanning demonstrates a large right femoral/iliac DVT. Patient is not a candidate for anticoagulation due to widespread metastatic disease and risk of bleeding. Otherwise, on my interview patient is not short of breath and does not report chest pain. There is no nausea vomiting or fevers. - Home Medications and Allergies Home Medications: Home Medications Medication Instructions Recorded Confirmed Type cloNIDine HCl [Clonidine HCl] 0.2 mg PO TID 11/01/16 01/18/17 History Multivitamin (Centrum) [Centrum 1 tablet PO DAILY 01/18/17 01/18/17 History Tab] Allergies/Adverse Reactions: Allergies Allergy/AdvReac Type Severity Reaction Status Date / Time No Known Allergies Allergy Verified 01/18/17 06:45 12 point system: reviewed and no additional remarkable complaints except as stated Medical,Surgical,& Family Hx - Medical History Cardio: History of: Hypertension Neurology: History of: Seizures (BRAIN METS) HEENT: History of: Dental Problems (PARTIAL) Endocrine: History of: Diabetes Mellitus (IDDM), Diabetes Mellitus (NIDDM) Respiratory: History of: Lung Cancer (02 AT HOME PRN.), Respiratory Problems ( TUMOR IN RT LUNG. DRAINAGE TUBE IN RT LUNG. DR CHEEMA. FLU VAC-NO; PNEU- N) Gastrointestinal: History of: GI Problems (CONSTIPATION) Hematology: History of: Clotting Problems (RT LEG DVT 10/2016) Reproductive: History of: Breast Cancer (RT BREAST CA) Other: History of: Cancer (RT BREAST CA AND LUNG RT LUNG BRAIN CA), Miscellaneous Medical Problems (BLOOD TRANSFUSION 10/2016.) - Surgical History Neurologic Surgeries: Surgical HX of: Neurologic Surgery (BRAIN TUMOR REMOVED 2016.) HEENT Surgeries: Surgical HX of: Eye Surgery (ROHAN CATARACT SX) Orthopedic Surgeries: Surgical HX of;: Implanted Devices (RT LUNG DRAINAGE TUBE) - Family History Family History: Reports;: Family Cancer (MOTHER BREAST CA DAUGHTERE BREAST CA) - Social History Smoking Status: Unknown if ever smoked Frequency of Alcohol Use: None Type of Drug Use: None Exam - Labs CBC & BMP: 01/23/17 03:40 01/23/17 03:40 Lab Results: I have reviewed the past 24 hour labs Image Studies: CT done late december and DVT u/s study - Constitutional Vitals: Period Temp Pulse Resp BP Sys/Navarro Pulse Ox Last 24 Hr 97.9 F-99.7 F 77-101 16-24 119-164/59-85 94-100 General appearance: under weight - Eye Eye exam: Present: EOMI, conjunctival injection - Respiratory Respiratory exam: Present: clear to auscultation bilaterally, accessory muscle use, decreased breath sounds - Cardiovascular Cardiovascular exam: Present: regular rate and rhythm - GI/Abdominal GI/Abdominal exam: Present: normal bowel sounds - Neurological Exam Neurological exam: Present: alert, oriented X3 - Psychiatric Psychiatric exam: Present: normal affect, normal mood - Skin Skin exam: Present: normal color, dry
[2017-01-24 05:34] LABS: Basophils % 0.5 % (0.0-0.8); Eosinophils # 0.1 10*3/uL (0.0-0.87); Eosinophils % 1.3 % (0.00-10.9); Hemoglobin 10.8 GM/DL (12.0-16.0); Immature Granulocytes % 0.3 %; Immature Granulocytes Absolute 0.01 #; Lymphocytes # 1.8 10*3/uL (1.4-4.0); Lymphocytes % 47.2 % (21.3-54.2); Mean Corpuscular HGB Conc 33.8 GM/DL (32-36); Mean Corpuscular Hemoglobin 29 PG (27-34); Mean Platelet Volume 10.8 FL (9.6-12.0); Monocytes # 0.8 10*3/uL (0.11-0.8); Monocytes % 21.4 % (1.7-12.7); Neutrophils # 1.1 10*3/uL (1.4-7.4); Neutrophils % 29.3 % (38.7-73.9); Platelet Count 168 T/CUMM (130-400); Red Blood Count 3.68 MC/CUMM (3.8-5.5); Red Cell Distribution Width 18.2 % (9.3-17.3); White Blood Count 3.7 T/CUMM (4-12)
[2017-01-24 06:32] LABS: Giant Platelets Few; Hypochromasia 2+; Lymphocytes 33 % (20-55); Platelet Estimate Adequate; Segmented Neutrophils 51 % (50-85); Spherocytes Few; Total Cells Counted 100
--- NOTE | 2017-01-24 07:41 | Oncology Progress Note ---
Assessment and Plan (1) Grand mal seizure disorder Status: Acute Current Visit: Yes (2) Brain metastasis Status: Acute Current Visit: No (3) Lung cancer Status: Acute Current Visit: No (4) Pleural effusion Status: Acute Current Visit: No (5) Anemia Status: Acute Current Visit: Yes Oncology Subjective PN Interval history: Ms. Caicedo is doing very well. She is ablating to the bathroom on her own. We are awaiting an IVC filter to be placed hopefully later today. There was some concerns about a positive blood culture but this was only in 1 bottle of her initial set from the fourth and appears to be a skin contaminant. We are not treating this due to the felt that this is a skin contaminant and not a true bacteremia. Once her IVC filter is placed we will likely start getting set up to discharge her home. I told her that my goal will be to have her home tomorrow. She is still undecided if she would like to continue chemotherapy or not. We are not going to do full strength anticoagulation for her right upper extremity DVT due to her increased risk for bleeding and her history of excessive bleeding from her Pleurx catheter. Exam - Constitutional Vitals: Period Temp Pulse Resp BP Sys/Navarro Pulse Ox Last 24 Hr 98.1 F-99.6 F 79-91 18-24 134-168/67-83 94-99 General appearance: normal weight, no acute distress - Head Head Exam: Present: normocephalic, atraumatic - Eye Eye Exam: Present: EOMI Pupils: Present: PERRL - ENT ENT exam: Present: normal exam, normal oropharynx - Neck Neck exam: Absent: lymphadenopathy, thyromegaly - Respiratory Respiratory exam: Present: CTAB. Absent: wheezes - Cardiovascular Cardiovascular exam: Present: RRR. Absent: JVD - Neurological Exam Neurological exam: Present: alert, oriented X3 - Psychiatric Psychiatric exam: Present: normal affect, normal mood - Skin Skin exam: Present: warm, dry Results - Labs CBC & BMP: 01/24/17 04:49 01/23/17 03:40
[2017-01-24] MEDS: levETIRAcetam 500 MG TABLET PO SCH ×2 (09:11→22:15)
[2017-01-24] MEDS: MAGNESIUM OXIDE 400 MG TABLET PO SCH ×2 (09:11→22:15)
[2017-01-24] MEDS: cloNIDine 0.1 MG TABLET PO SCH ×2 (09:11→22:15)
[2017-01-24] MEDS ORDERED: DIAZEPAM 5 MG TABLET PO ONE (12:43)
--- NOTE | 2017-01-24 14:32 | Post Interventional Procedure ---
Pre-op diagnosis: right iliac and femoral DVT, metastatic cancer not anticoag candidate Post-op diagnosis: same Procedure: IVC filter placement Contrast: 20 mL Omni 350 Flouroscopy: 2.6 min Radiologist: Rob Carbajal Anesthesia: local Specimens: none sent Estimated blood loss: none Complications: none Condition: stable Description/Findings: IVC is patent and normal calibur. Filling defect in the left common iliac vein are noted and compatible with known DVT Posey IVC filter placement from IJ approach completed without difficulty Assessment and Plan - Time spent with patient Time spent with patient: Less than 30 minutes
--- NOTE | 2017-01-24 15:02 | Interventional Radiology Rpt ---
IR IVC filter placement IR IVC Filter Placement Inferior vena cavogram Ultrasound of the right neck Clinical Information: 72-year-old female widely spread metastatic disease from breast cancer, recent admission for new onset seizure although intracranial metastatic disease was not confirmed. Additional imaging demonstrates large right-sided DVT. CT imaging also confirms the iliac vein to be involved. The patient does not have significant right lower extremity swelling and this may be a subacute/chronic thrombus however, anticoagulation is present limited due to her widespread metastatic disease and likelihood of risk of bleeding. IVC filter is requested. Physician[s]: Dr. Carbajal Procedure: The patient was advised of the benefits, risks, and alternatives of the procedure and informed consent was obtained. A time out was performed with verification of the patient's name, MRN, site of procedure, and type of procedure to be performed. The patient was positioned in the supine position on the angiographic table. The site was prepped and draped in the usual sterile fashion. Local anesthesia only was used for the procedure. Preliminary ultrasound of the right neck was performed, demonstrating the internal jugular vein to be normal in caliber and easily compressible. The right internal jugular vein was accessed using a microintroducer system. A 0.035 J-wire was placed into the peripheral inferior vena cava. An inferior venacavogram was then performed, demonstrating a normal caliber inferior vena cava without filling defects and the renal vein inflows at the L2 level. There is obvious filling defect within the distal inferior vena cava and right common iliac artery, compatible with the known DVT on CT imaging. Otherwise, no caval anomalies were identified. A wire was then passed into the inferior vena cava and the filter sheath advanced over the wire. A [place] inferior vena cava filter was then advanced through the sheath and positioned within the infra-renal inferior vena cava. The filter was then deployed in the usual fashion. Positioning was confirmed fluoroscopically. The sheath was then removed and hemostasis obtained with manual compression. The patient tolerated the procedure well and was returned to the inpatient room in stable condition. EBL: < 5 mL. Complications: None. Conclusions: 1. Blood clot extending into the right common iliac veins and inferior margin of the IVC, as seen on prior CT imaging. 2. Successful deployment of a [place] retrievable inferior vena cava filter in the infra-renal inferior vena cava. 3. The patient should return for filter retrieval when it is no longer needed. However, in this patient, the filter will likely remain indefinitely and risks of long-term filter placement were discussed with the patient and family. PROCEDURE INTERPRETED AT [facility] DEPARTMENT OF RADIOLOGY Final Report Signed by: Rob Carbajal
[2017-01-24] MEDS: DEXT 5% NACL 0.45% KCL 20 MEQ 20 MEQ/1,000 ML BAG IV SCH (16:23)
[2017-01-25 04:03] LABS: Basophils % 0.3 % (0.0-0.8); Eosinophils # 0.1 10*3/uL (0.0-0.87); Eosinophils % 1.6 % (0.00-10.9); Hematocrit 28.7 VOL% (35.7-47.0); Hemoglobin 9.5 GM/DL (12.0-16.0); Immature Granulocytes % 0.6 %; Immature Granulocytes Absolute 0.02 #; Lymphocytes # 1.3 10*3/uL (1.4-4.0); Lymphocytes % 39.9 % (21.3-54.2); Mean Corpuscular HGB Conc 33.1 GM/DL (32-36); Mean Corpuscular Hemoglobin 29 PG (27-34); Mean Corpuscular Volume 87.5 FL (87-102); Mean Platelet Volume 10.2 FL (9.6-12.0); Monocytes # 0.7 10*3/uL (0.11-0.8); Monocytes % 21.7 % (1.7-12.7); Neutrophils # 1.1 10*3/uL (1.4-7.4); Neutrophils % 35.9 % (38.7-73.9); Platelet Count 132 T/CUMM (130-400); Red Blood Count 3.28 MC/CUMM (3.8-5.5); White Blood Count 3.2 T/CUMM (4-12)
[2017-01-25 04:47] LABS: Band Neutrophils 1 % (0-10); Eosinophils 4 % (0-10); Lymphocytes 26 % (20-55); Segmented Neutrophils 53 % (50-85); Total Cells Counted 100
[2017-01-25 04:48] LABS: Spherocytes Few
[2017-01-25 04:49] LABS: Hypochromasia 1+; Platelet Estimate Normal
[2017-01-25] MEDS: DEXT 5% NACL 0.45% KCL 20 MEQ 20 MEQ/1,000 ML BAG IV SCH (06:52)
--- NOTE | 2017-01-25 08:20 | Discharge Summary ---
Hospital Course - Hospital Course Hospital Course: Ms. Caicedo is a 9-year-old black female with triple negative metastatic breast cancer including brain metastases who was admitted after undergoing what sounded like a grand mal seizure. She required intubation in the ER to protect her airway. She was begun on Keppra. Imaging of her head did not show any new brain lesions or hemorrhaging. She had no further seizures after admission. She remained in ICU for 2-3 days while we tried to wean her from the ventilator. When she was off the ventilator she did well and showed no residual effects of her seizure. We repeated the ultrasound of her right leg which showed a continued large DVT. Given her high risk for bleeding and her history of significant hemorrhaging from her right Pleurx catheter, we held off on anticoagulation. An IVC filter was placed to help prevent dislodging of the thrombus to other vital organs. We are discharging her home today. I told her to consider stopping chemotherapy since I do not think it is very effective in her case. She is already scheduled to see me next they will think about this for the next few days and make a decision. I instructed her to take a baby aspirin every day. We will also continue her on daily Keppra 500 mg p.o. twice daily. Will arrange for her to get a walker for use at home. Diagnosis - Discharge Diagnosis (1) Grand mal seizure disorder Status: Acute (2) Brain metastasis Status: Acute (3) Lung cancer Status: Acute (4) Pleural effusion Status: Acute (5) Anemia Status: Acute Discharge Plan - Discharge Data Disposition: Disch To Home/Self Care Condition at Discharge: Stable Hygiene: no restrictions - Discharge Medications New levETIRAcetam TAB [Keppra Tab] 500 mg PO BID #60 tablet Aspirin [Ecotrin] 81 mg PO DAILY #90 tablet. Continue cloNIDine HCl [Clonidine HCl] 0.2 mg PO TID Multivitamin (Centrum) [Centrum Tab] 1 tablet PO DAILY - Follow Up or Referral - Forms/Instructions Exam - Constitutional Vitals: Period Temp Pulse Resp BP Sys/Navarro Pulse Ox Last 24 Hr 97.4 F-98.6 F 71-93 16-24 128-194/62-99 94-100 Discharge Results Labs on day of discharge: Labs from last 24 hours 01/25/17 03:30 WBC 3.2 L RBC 3.28 L Hgb 9.5 L Hct 28.7 L MCV 87.5 MCH 29 MCHC 33.1 RDW 18.0 H Plt Count 132 D MPV 10.2 Neut % (Auto) 35.9 L Lymph % (Auto) 39.9 [place] % (Auto) 21.7 H Eos % (Auto) 1.6 Baso % (Auto) 0.3 Neut # (Auto) 1.1 L Lymph # (Auto) 1.3 L [place] # (Auto) 0.7 Eos # (Auto) 0.1 Baso # (Auto) 0.0 Total Counted 100 Immature Gran % 0.6 Nucleated RBC % 0.0 Immature Gran # 0.02 Segmented Neutrophils 53 Band Neutrophils 1 Lymphocytes 26 Monocytes 15 Eosinophils 4 Basophils 1.0 H Nucleated RBCs # 0.00 Platelet Estimate Normal Immature Plt Fraction 0.0 Hypochromasia 1+ Spherocytes Few DS: Provider Date of admission: 01/18/17 08:26 Primary care physician: . No PCP Attending physician on admission: Albert Thomas MD Consults: 01/18/17 10:24 Consult to Dietitian [CONS] Routine Reason for Dietitian: Other Consult Comment: COMPUTER GENERATED 01/18/17 10:27 Consult to Pastoral Services [CONS] Routine Comment: Pastoral Screen: Request Solar Energy Systems Designer Visit Pastoral Screen Source of Request: Family Discharging clinician: Albert Thomas MD
[2017-01-25] MEDS: levETIRAcetam 500 MG TABLET PO SCH (08:59)
[2017-01-25] MEDS: cloNIDine 0.1 MG TABLET PO SCH (08:59)
[2017-01-25] MEDS: MAGNESIUM OXIDE 400 MG TABLET PO SCH (08:59)
[2017-01-25 12:10] VITALS: BP 120/61
== END 2017-01-25 13:17 | disposition home or self-care (01) | DRG 40 ==
LOC: EDUNIT# → EDBD → N.ED 06:31 → N.EDINP 08:26 → N.ICU 08:54 → N.4E 01-21 18:07
PROVIDERS: ADMIT Specialist; ATTEND Specialist